=== PATIENT | male | born 1960 | race Caucasian/White ===

== ENCOUNTER 2023-03-18 07:28 | Inpatient (IN) ==
[2023-03-18] MEDS ORDERED: KETOROLAC TROMETHAMINE 15 MG/ML VIAL IV STA (07:40)
[2023-03-18] MEDS ORDERED: ONDANSETRON INJ 2 MG/ML 2 ML VIAL IV STA (07:40)
[2023-03-18] MEDS ORDERED: SODIUM CHLORIDE 0.9% 1000ML 1,000 ML IV STA (07:40)
--- NOTE | 2023-03-18 07:48 | Emergency Department Note ---
Impression & Plan Acute appendicitis ED Provider Note INFORMANT: Patient ED PROVIDER(S): Lucius Shultz DO CHIEF COMPLAINT: Right lower quadrant abdominal pain PLAN: Disposition: Admission Outpatient prescription management: none Discussion with: Surgery MEDICAL DECISION MAKING: This is a 62-year-old male who presents to the ED with a chief complaint of right lower abdominal pain. He states that it feels like a spasm. Reports associated nausea and vomiting. The patient states that his symptoms started suddenly around 130 this morning when he was urinating. The patient has some tenderness in the right lower abdomen. No CVA tenderness. Lungs clear. Heart is regular rate and rhythm. He does report history of inguinal hernia with surgery in the past. The patient's blood pressure was elevated. He did take some nausea medication prior to arrival. The patient has a mild leukocytosis of 12.55. Chemistry panel showed no electrolyte abnormality. Kidney function was normal. Lipase was negative for pancreatitis. CT scan shows acute appendicitis. I spoke with the general surgery service. They will see the patient for further inpatient evaluation and care. The patient was treated with IV Toradol, IV Zofran and IV fluids Triage Nursing notes reviewed. Vital Signs: reviewed Prior /Outside records reviewed: none Differential diagnosis: Inguinal hernia, kidney stone, appendicitis, cellulitis, bowel perforation, musculoskeletal, vascular catastrophe, other. Diagnostics, as interpreted by me: 12 lead ECG: None Cardiac Monitoring ordered: none Medical decision rules: none Imaging studies: CT scan of the abdomen pelvis: Acute appendicitis Procedures: none. Critical care: none. HPI: See MDM above. PAST MEDICAL HISTORY: See Below PAST SURGICAL HISTORY: See Below SOCIAL HISTORY: See Below HOME MEDICATIONS:See Below ALLERGIES: See Below VITALS: See Below PHYSICAL EXAMINATION: See MDM for positive findings otherwise unremarkable. CONSTITUTIONAL/VITAL SIGNS: Reviewed GENERAL:done as appropriate INTEGUMENTARY: done as appropriate HEAD: done as appropriate EYES: done as appropriate RESPIRATORY: done as appropriate CARDIOVASCULAR:done as appropriate GI/ABDOMEN:done as appropriate EXTREMITIES: done as appropriate NEUROLOGICAL: done as appropriate PSYCHIATRIC:done as appropriate MUSCULOSKELETAL:done as appropriate TRIAGE NURSING DOCUMENTATION REVIEWED. Past Med/Surg History Medical History Anxiety CAD (coronary artery disease) Depression Eczema Enlarged prostate GERD (gastroesophageal reflux disease) High cholesterol History of alcohol use disorder Hx of cocaine abuse Hypertension OCD (obsessive compulsive disorder) Right inguinal hernia Social anxiety disorder Surgical History History of cataract surgery RT/LEFT Hx of hernia repair Hx of inguinal hernia surgery (10/19/19) Laparoscopic Right Recurrent Inguinal Hernia Repair with Mesh, Left Laparoscopic Inguinal Hernia Repair with Mesh; Open Umbilical Hernia Repair; Enterolysis Dr. Jason 10-19-19 Hx of resection of liver PARTIAL Hx of vascular surgery LEFT Social History Smoking Status: Never smoker Preferred Language: Arabic Current Living Situation: Other Current Living Situation Comment: [facility] Feels Safe at Home: Yes Allergies Allergies Allergy/AdvReac Type Severity Reaction Status Date / Time Qkxkpew-ESJ-WdD Reductase AdvReac LEG CRAMPS Verified 11/03/19 10:18 Inhibitor [Kekfvld-Ahh-Tjs Reductase Inhibitor] Home Meds Home Medications Medication Instructions Recorded Confirmed aspirin 81 mg tablet,delayed 81 mg PO DAILY 02/23/19 11/03/19 release fluoxetine 20 mg capsule 60 mg PO DAILY 02/23/19 11/03/19 hydrochlorothiazide 12.5 mg capsule 12.5 mg PO DAILY 02/23/19 11/03/19 lamotrigine 25 mg tablet,extended 50 mg PO DAILY 02/23/19 11/03/19 release 24 hr lisinopril 10 mg tablet 10 mg PO DAILY 02/23/19 11/03/19 omeprazole 20 mg tablet,delayed 20 mg PO DAILY 02/23/19 11/03/19 release tamsulosin 0.4 mg capsule 0.4 mg PO DAILY 02/23/19 11/03/19 Results & Data (ED) Vital Signs Vital Signs - 24 hr 03/18/23 07:32 03/18/23 07:56 03/18/23 07:57 Temperature 36.5 C Temperature Source Temporal Artery Scan Pulse Rate 57 L Pulse Rate [Apical] 47 L Pulse Rhythm Regular Pulse Strength Normal Respiratory Rate 18 18 Respiratory Effort / Characteristics Non-Labored Spontaneous Respiratory Depth Normal Respiratory Pattern Regular Blood Pressure 187/91 H Blood Pressure Mean 123 Blood Pressure Position Sitting Pulse Oximetry 99 99 98 Oxygen Delivery Method Room Air Room Air Room Air Sepsis Recent Fever Within 48 Hours No Sepsis New/Unexplained Change in Mental Status No Sepsis Action Taken by Nursing No Action Required Laboratory Data 03/18/23 08:00 03/18/23 08:00 Lab Results 03/18/23 03/18/23 Range/Units 08:00 08:00 WBC 12.55 H (4.8-10.8) K/ul RBC 5.29 (4.70-6.10) M/uL Hgb 16.3 (14.0-18.0) g/dl Hct 45.7 (42.0-52.0) % MCV 86.4 (80.0-100.0) fL MCH 30.8 (25.0-34.0) pg MCHC 35.7 (32.0-36.0) g/dL RDW Std Deviation 39.1 (36.4-46.3) fL RDW Coeff of Lissa 12.4 (11.5-14.5) % Plt Count 401 H (130-400) K/uL MPV 9.4 (9.4-12.4) fL Immature Gran % (Auto) 0.3 % Neut % (Auto) 88.3 % Lymph % (Auto) 4.5 % [place] % (Auto) 6.2 % Eos % (Auto) 0.2 % Baso % (Auto) 0.5 % Neut # (Auto) 11.08 H (1.40-6.50) K/uL Lymph # (Auto) 0.56 L (1.2-3.4) K/uL [place] # (Auto) 0.78 H (0.11-0.59) K/uL Eos # (Auto) 0.03 (0-0.50) K/uL Baso # (Auto) 0.06 (0-0.2) K/uL Immature Gran # (Auto) 0.04 (0.01-0.20) K/uL Sodium 139 (136-145) mmol/L Potassium 3.3 L (3.5-5.1) mmol/L Chloride 102 (98-107) mmol/L Carbon Dioxide 24 (21-32) mmol/L Anion Gap 13 H (3-11) BUN 13 (6-23) mg/dl Creatinine 1.00 (0.6-1.4) mg/dl Est Cr Clr Drug Dosing 80.1 ml/min Est GFR ( Amer) 93.7 ml/min Est GFR (Non-Af Amer) 80.9 ml/min BUN/Creatinine Ratio 13.0 (10-20) Glucose 127 H (70-99(Fasting)) mg/dl Calcium 10.4 H (8.6-10.3) mg/dl Total Bilirubin 0.9 (0.2-1.0) mg/dl AST 23 (13-39) U/L ALT 30 (7-52) U/L Alkaline Phosphatase 62 (34-104) U/L Total Protein 7.3 (6.0-8.3) gm/dl Albumin 5.1 H (3.4-5.0) gm/dl Globulin 2.2 L (2.5-4.0) gm/dl Albumin/Globulin Ratio 2.3 H (0.9-2) Lipase 16 (11-82) U/L Administered Medications Discontinued Medications Sodium Chloride (Nss 1000ml) 1,000 mls @ 999 mls/hr IV .Q1H1M STA Stop: 03/18/23 08:40 Last Admin: 03/18/23 07:55 Dose: 999 mls/hr Documented By: KV Ketorolac Tromethamine (Ketorolac Tromethamine 15 Mg/Ml Vial) 30 mg IV NOW STA Stop: 03/18/23 07:41 Last Admin: 03/18/23 07:55 Dose: 30 mg Documented By: KV Ondansetron HCl (Ondansetron Inj 2 Mg/Ml 2 Ml Vial) 4 mg IV NOW STA Stop: 03/18/23 07:41 Last Admin: 03/18/23 07:55 Dose: 4 mg Documented By: KV Imaging Data Radiologist's Impression: Abdomen/Pelvis CT 03/18/23 07:40 CT OF THE ABDOMEN AND PELVIS WITHOUT CONTRAST CLINICAL HISTORY: Sudden onset right lower quadrant pain, nausea and vomiting. COMPARISON STUDY: No previous studies for comparison. TECHNIQUE: Axial images of the abdomen and pelvis were obtained without IV contrast. Images were reviewed in the axial, sagittal, and coronal planes. Automated exposure control was utilized for the study. A dose lowering t echnique was utilized adhering to the principles of ALARA. FINDINGS: Lung bases are unremarkable. There is mild elevation of the right hemidiaphragm. No pneumatosis, free air or portal venous gas is present. Evaluation of the solid abdominal viscera is suboptimal on this unenhanced exam. Liver, spleen, adrenal glands, kidneys and pancreas are normal. Is no biliary or pancreatic ductal dilatation. There is no hydronephrosis. There is no evidence for a bowel obstruction. Multiple appendicoliths within the appendix are noted. The appendix is dilated and fluid-filled, measuring 1.3 cm in caliber. Mild periappendiceal stranding and a small amount of fluid is noted. There is no abscess. Caliber and wall thickness of small and large bowel are within normal limits on unenhanced exam. There is no lymphadenopathy. There are no acute fractures. Bilateral inguinal hernia repairs are present. A loop of small bowel extends into an umbilical hernia. IMPRESSION: Findings consistent with acute appendicitis. No free air or abscess. ACT 112: Negative or not required by law. Electronically signed by: Isaac Gonzalez M.D. 03/18/2023 8:50 AM Discharge Plan Visit Data Chief Complaint: Abdominal Pain Stated Complaint: ABD PAIN ED Provider: Lucius Shultz Discharge Problem: Acute appendicitis Patient Disposition: Being Evaluated by Surgeon Forms Stand Al[facility] Prescriptions Prescriptions: No Action aspirin 81 mg Tablet,Delayed Release (Dr/Ec) 81 mg PO DAILY tamsulosin 0.4 mg Capsule 0.4 mg PO DAILY lisinopril 10 mg Tablet 10 mg PO DAILY hydrochlorothiazide 12.5 mg Capsule 12.5 mg PO DAILY fluoxetine 20 mg Capsule 60 mg PO DAILY omeprazole 20 mg Tablet,Delayed Release (Dr/Ec) 20 mg PO DAILY lamotrigine 25 mg Tablet Extended Release 24hr 50 mg PO DAILY Referrals Referrals: Lucius Shaffer [Primary Care Provider] -
[2023-03-18 08:27] LABS: Basophils # (auto) 0.06 K/uL (0-0.2); Basophils % (auto) 0.5 %; Eosinophils # (auto) 0.03 K/uL (0-0.50); Eosinophils % (auto) 0.2 %; Hematocrit (blood only) 45.7 % (42.0-52.0); Hemoglobin 16.3 g/dl (14.0-18.0); Immature Granulocytes # (auto) 0.04 K/uL (0.01-0.20); Immature Granulocytes % (auto) 0.3 %; Lymphocytes # (auto) 0.56 K/uL (1.2-3.4); Lymphocytes % (auto) 4.5 %; Mean Corpuscular Hemoglobin 30.8 pg (25.0-34.0); Mean Corpuscular Hgb Conc 35.7 g/dL (32.0-36.0); Mean Corpuscular Volume 86.4 fL (80.0-100.0); Mean Platelet Volume 9.4 fL (9.4-12.4); Monocytes # (auto) 0.78 K/uL (0.11-0.59); Monocytes % (auto) 6.2 %; Neutrophils # (auto) 11.08 K/uL (1.40-6.50); Neutrophils % (auto) 88.3 %; Platelet Count 401 K/uL (130-400); RDW Coefficient of Variation 12.4 % (11.5-14.5); RDW Standard Deviation 39.1 fL (36.4-46.3); Red Blood Count 5.29 M/uL (4.70-6.10); White Blood Count 12.55 K/ul (4.8-10.8)
[2023-03-18 08:40] LABS: Albumin Globulin Ratio 2.3 (0.9-2); Albumin Level 5.1 gm/dl (3.4-5.0); Bilirubin,Total 0.9 mg/dl (0.2-1.0); Calcium 10.4 mg/dl (8.6-10.3); Creatinine Clr Calc Pharmacy 80.1 ml/min; Est GFR (African American) 93.7 ml/min; Est GFR (Non-African American) 80.9 ml/min; Globulin 2.2 gm/dl (2.5-4.0); Potassium 3.3 mmol/L (3.5-5.1); Total Protein 7.3 gm/dl (6.0-8.3)
--- NOTE | 2023-03-18 08:52 | CT Scan Report ---
CT OF THE ABDOMEN AND PELVIS WITHOUT CONTRAST CLINICAL HISTORY: Sudden onset right lower quadrant pain, nausea and vomiting. COMPARISON STUDY: No previous studies for comparison. TECHNIQUE: Axial images of the abdomen and pelvis were obtained without IV contrast. Images were revi ewed in the axial, sagittal, and coronal planes. Automated exposure control was utilized for the belinda dy. A dose lowering technique was utilized adhering to the principles of ALARA. FINDINGS: Lung bases are unremarkable. There is mild elevation of the right hemidiaphragm. No pneumat osis, free air or portal venous gas is present. Evaluation of the solid abdominal viscera is suboptim al on this unenhanced exam. Liver, spleen, adrenal glands, kidneys and pancreas are normal. Is no ary iary or pancreatic ductal dilatation. There is no hydronephrosis. There is no evidence for a bowel ob struction. Multiple appendicoliths within the appendix are noted. The appendix is dilated and fluid-f illed, measuring 1.3 cm in caliber. Mild periappendiceal stranding and a small amount of fluid is not ed. There is no abscess. Caliber and wall thickness of small and large bowel are within normal limits on unenhanced exam. There is no lymphadenopathy. There are no acute fractures. Bilateral inguinal he rnia repairs are present. A loop of small bowel extends into an umbilical hernia. IMPRESSION: Findings consistent with acute appendicitis. No free air or abscess. ACT 112: Negative or not required by law. Electronically signed by: Isaac Gonzalez M.D. 03/18/2023 8:50 AM
--- NOTE | 2023-03-18 09:54 | History & Physical Report ---
Date of Service March 18, 2023 Assessment & Plan (1) Acute appendicitis: Plan 62 year-old male prisoner presented to ED with complaint of sudden onset of right lower abdominal pain that started at 0100 this morning. Associated chills and vomiting x 2. Decreased appetite. Leukocytosis of 12K and ct scan with acute appendicitis with appendicoliths and no signs of perforation or abscess. Plan: Discussed imaging findings with patient and examination is consistent with acute appendicitis. Discussed laparoscopic appendectomy, associated risks, and expected recovery time. Will schedule for OR time at earliest convenience. NPO COVID preop testing will give IV cefoxitin preop Dr. Olmos has seen patient in emergency room, examined patient, discussed procedure and obtained consent. I reviewed patient's H/P, labs and CT scan finding with patient. IMP: acute appendicitis, with appendicolith. Plan: I agreed with above note. I recommend to do laparoscopic appendectomy, possible open. Discussed with patient about benefits, risks and alternatives of the surgery, the risks - infection, bleeding, abscess, injury other organs, bowel obstruction, incisional hernia. patient understood, he agreed with surgery, he signed informed consent, I answered all questions, pre-op antib iotic. History of Present Illness Chief Complaint: right lower abdominal pain Primary Care Provider: Lucius Shaffer Irvin is a 62 year-old male who [facility] due to sudden onset of right lower abdominal pain after urinating. Had associated vomiting x 2. Decreased appetite in last day. No fevers but chills. Never had pain like this before. History of liver resection when he was teenager due to accident and required chest tube. History of right open inguinal hernia repair and then laparoscopic bilateral hernia repair with mesh and primary umbilical hernia repair without mesh by Dr. Jason in 2019 . States he thought that the pain was related to hernia. Has recurrent hernia and bulge in right groin but this is reducible. Takes baby aspirin daily no other blood thinning agents. ER work-up included labs which showed elevated at wbc at 12.55K. CT scan of abd/pelv with IV contrast showing dialted appendix with stranding and multiple appendicoliths consistent with acute appendicitis. No evidence of perforation or abscess. Has umbilical hernia containing small bowel but no obstruction. Allergies Allergy/AdvReac Type Severity Reaction Status Date / Time Fzlpaoa-RQJ-XqN Reductase AdvReac LEG CRAMPS Verified 11/03/19 10:18 Inhibitor [Iincbpy-Alr-Ipp Reductase Inhibitor] Home Medications Medication Instructions Recorded Confirmed Type aspirin 81 mg tablet,delayed 81 mg PO DAILY 02/23/19 11/03/19 History release fluoxetine 20 mg capsule 60 mg PO DAILY 02/23/19 11/03/19 History hydrochlorothiazide 12.5 mg capsule 12.5 mg PO DAILY 02/23/19 11/03/19 History lamotrigine 25 mg tablet,extended 50 mg PO DAILY 02/23/19 11/03/19 History release 24 hr lisinopril 10 mg tablet 10 mg PO DAILY 02/23/19 11/03/19 History omeprazole 20 mg tablet,delayed 20 mg PO DAILY 02/23/19 11/03/19 History release tamsulosin 0.4 mg capsule 0.4 mg PO DAILY 02/23/19 11/03/19 History Past Med/Surg History Medical History Anxiety CAD (coronary artery disease) Depression Eczema Enlarged prostate GERD (gastroesophageal reflux disease) High cholesterol History of alcohol use disorder Hx of cocaine abuse Hypertension OCD (obsessive compulsive disorder) Right inguinal hernia Social anxiety disorder Surgical History History of cataract surgery RT/LEFT Hx of hernia repair Hx of inguinal hernia surgery (10/19/19) Laparoscopic Right Recurrent Inguinal Hernia Repair with Mesh, Left Laparoscopic Inguinal Hernia Repair with Mesh; Open Umbilical Hernia Repair; Enterolysis Dr. Jason 10-19-19 Hx of resection of liver PARTIAL Hx of vascular surgery LEFT Social History Smoking Status: Never smoker Preferred Language: Divehi Current Living Situation: Other Current Living Situation Comment: [facility] Feels Safe at Home: Yes Review of Systems Review of Systems: All systems reviewed & are unremarkable except as noted in HPI & below Physical Exam Constitutional: WD/WN, vitals as above cooperative and comfortable; no acute distress and not ill appearing Respiratory: normal respiratory effort, lungs clear to auscultation Cardiovascular: RRR, no murmur, no edema Gastrointestinal (Abdomen): Inspection/Auscultation: abdomen normal to inspection, normal bowel sounds and + abdominal surgical scar (right paramidline scar, laparoscopic scars); abdomen not distended Percussion/Palpation: + abdomen tender (RLQ with positive mcburneys point), + guarding (voluntary in RLQ), abdomen soft and + hernia (umbilical hernia reducible, RIH with pain on palpation); abdomen not rigid and abdomen not firm Skin: no rashes, warm and dry Psychiatric: A+Ox3, euthymic affect Results & Data Results & Data Vital Signs (Past 12 Hours) Vital Signs Temp Pulse Pulse Resp BP Pulse Ox O2 Del Method 03/18/23 07:57 98 Room Air 03/18/23 07:56 47 L 18 99 Room Air 03/18/23 07:32 36.5 C 57 L 18 187/91 H 99 Room Air Laboratory Results 03/18/23 03/18/23 Range/Units 08:00 08:00 WBC 12.55 H (4.8-10.8) K/ul RBC 5.29 (4.70-6.10) M/uL Hgb 16.3 (14.0-18.0) g/dl Hct 45.7 (42.0-52.0) % MCV 86.4 (80.0-100.0) fL MCH 30.8 (25.0-34.0) pg MCHC 35.7 (32.0-36.0) g/dL RDW Std Deviation 39.1 (36.4-46.3) fL RDW Coeff of Lissa 12.4 (11.5-14.5) % Plt Count 401 H (130-400) K/uL MPV 9.4 (9.4-12.4) fL Immature Gran % (Auto) 0.3 % Neut % (Auto) 88.3 % Lymph % (Auto) 4.5 % [place] % (Auto) 6.2 % Eos % (Auto) 0.2 % Baso % (Auto) 0.5 % Neut # (Auto) 11.08 H (1.40-6.50) K/uL Lymph # (Auto) 0.56 L (1.2-3.4) K/uL [place] # (Auto) 0.78 H (0.11-0.59) K/uL Eos # (Auto) 0.03 (0-0.50) K/uL Baso # (Auto) 0.06 (0-0.2) K/uL Immature Gran # (Auto) 0.04 (0.01-0.20) K/uL Sodium 139 (136-145) mmol/L Potassium 3.3 L (3.5-5.1) mmol/L Chloride 102 (98-107) mmol/L Carbon Dioxide 24 (21-32) mmol/L Anion Gap 13 H (3-11) BUN 13 (6-23) mg/dl Creatinine 1.00 (0.6-1.4) mg/dl Est Cr Clr Drug Dosing 80.1 ml/min Est GFR ( Amer) 93.7 ml/min Est GFR (Non-Af Amer) 80.9 ml/min BUN/Creatinine Ratio 13.0 (10-20) Glucose 127 H (70-99(Fasting)) mg/dl Calcium 10.4 H (8.6-10.3) mg/dl Total Bilirubin 0.9 (0.2-1.0) mg/dl AST 23 (13-39) U/L ALT 30 (7-52) U/L Alkaline Phosphatase 62 (34-104) U/L Total Protein 7.3 (6.0-8.3) gm/dl Albumin 5.1 H (3.4-5.0) gm/dl Globulin 2.2 L (2.5-4.0) gm/dl Albumin/Globulin Ratio 2.3 H (0.9-2) Lipase 16 (11-82) U/L Diagnostic Findings CT OF THE ABDOMEN AND PELVIS WITHOUT CONTRAST CLINICAL HISTORY: Sudden onset right lower quadrant pain, nausea and vomiting. COMPARISON STUDY: No previous studies for comparison. TECHNIQUE: Axial images of the abdomen and pelvis were obtained without IV contrast. Images were reviewed in the axial, sagittal, and coronal planes. Automated exposure control was utilized for the study. A dose lowering technique was utilized adhering to the principles of ALARA. FINDINGS: Lung bases are unremarkable. There is mild elevation of the right hemidiaphragm. No pneumatosis, free air or portal venous gas is present. Evaluation of the solid abdominal viscera is suboptimal on this unenhanced exam. Liver, spleen, adrenal glands, kidneys and pancreas are normal. Is no biliary or pancreatic ductal dilatation. There is no hydronephrosis. There is no evidence for a bowel obstruction. Multiple appendicoliths within the appendix are noted. The appendix is dilated and fluid-filled, measuring 1.3 cm in caliber. Mild periappendiceal stranding and a small amount of fluid is noted. There is no abscess. Caliber and wall thickness of small and large bowel are within normal limits on unenhanced exam. There is no lymphadenopathy. There are no acute fractures. Bilateral inguinal hernia repairs are present. A loop of small bowel extends into an umbilical hernia. IMPRESSION: Findings consistent with acute appendicitis. No free air or abscess. Code Status & VTE Plan VTE Prophylaxis Plan VTE Prophylaxis will be ordered: Yes
[2023-03-18] MEDS ORDERED: cefOXitin 2,000 MG/60 ML BAG IV STA (10:48)
--- NOTE | 2023-03-18 11:04 | Anesthesiology Consultation ---
Date of Service March 18, 2023 Assessment & Plan (1) Encounter for pre-operative examination: Chart Review Chart Review: Acceptable Risk for Surgery and Patient NOT seen in Pre Admission Testing Consults Requested none History Surgery Operation Date: 03/18/23 12:30 Proposed Procedures p Laparoscopic Appendectomy - Galina Olmos MD Height/Weight Height: 5 ft 10 in Weight: 79 kg Allergies Allergy/AdvReac Type Severity Reaction Status Date / Time Hlnwpae-RST-UuG Reductase AdvReac LEG CRAMPS Verified 11/03/19 10:18 Inhibitor [Kmevqmo-Bpf-Nhv Reductase Inhibitor] Medications Home Medications Medication Instructions Recorded Confirmed Last Taken aspirin 81 mg tablet,delayed 81 mg PO DAILY 02/23/19 11/03/19 10/18/19 08:00 release fluoxetine 20 mg capsule 60 mg PO DAILY 02/23/19 11/03/19 10/18/19 08:00 hydrochlorothiazide 12.5 mg capsule 12.5 mg PO DAILY 02/23/19 11/03/19 10/18/19 08:00 lamotrigine 25 mg tablet,extended 50 mg PO DAILY 02/23/19 11/03/19 10/18/19 08:00 release 24 hr lisinopril 10 mg tablet 10 mg PO DAILY 02/23/19 11/03/19 10/18/19 08:00 omeprazole 20 mg tablet,delayed 20 mg PO DAILY 02/23/19 11/03/19 10/18/19 08:00 release tamsulosin 0.4 mg capsule 0.4 mg PO DAILY 02/23/19 11/03/19 10/18/19 08:00 NPO Date Last Intake of Fluids: 03/17/23 Time Last Intake of Fluids: 20:00 Date Last Intake of Solids: 03/17/23 Time Last Intake of Solids: 20:00 Past Medical History Medical History Anxiety CAD (coronary artery disease) Depression Eczema Enlarged prostate GERD (gastroesophageal reflux disease) High cholesterol History of alcohol use disorder Hx of cocaine abuse Hypertension OCD (obsessive compulsive disorder) Right inguinal hernia Social anxiety disorder Past Surgical History Surgical History History of cataract surgery RT/LEFT Hx of hernia repair Hx of inguinal hernia surgery (10/19/19) Laparoscopic Right Recurrent Inguinal Hernia Repair with Mesh, Left Laparoscopic Inguinal Hernia Repair with Mesh; Open Umbilical Hernia Repair; Enterolysis Dr. Jason 10-19-19 Hx of resection of liver PARTIAL Hx of vascular surgery LEFT Social History Smoking Status: Never smoker Physical Exam Vital Signs Last Vital Signs Temp 98.2 F 03/18/23 10:58 Pulse 56 L 03/18/23 10:58 Resp 18 03/18/23 10:58 BP 137/66 03/18/23 10:58 Pulse Ox 96 03/18/23 10:58 O2 Del Method Room Air 03/18/23 10:58 Testing Laboratory Results 03/18/23 08:00 03/18/23 08:00
--- NOTE | 2023-03-18 11:08 | History & Physical Bridge Note ---
Date of Service March 18, 2023 History & Physical Bridge Note I have examined the patient, reviewed the History & Physical and in the interval since the performance of the History & Physical I have noted the following changes of clinical significance: no changes noted
[2023-03-18] MEDS ORDERED: ATROPINE SULFATE 0.1 MG/ML 10ML SYR IV PRN (11:10)
[2023-03-18] MEDS ORDERED: fentaNYL citrate PF 100 MCG/2 ML VIAL IV PRN (11:10)
[2023-03-18] MEDS ORDERED: ePHEDrine sulfate 50 MG/ML AMP IV PRN (11:10)
[2023-03-18] MEDS ORDERED: ONDANSETRON INJ 2 MG/ML 2 ML VIAL IV PRN ×2 (11:10→14:44)
[2023-03-18] MEDS ORDERED: fentaNYL citrate PF 100 MCG/2 ML VIAL ONE ×2 (11:18→12:08)
[2023-03-18] MEDS ORDERED: MIDAZOLAM HCL 1 MG/ML 2ML VIAL ONE (11:18)
[2023-03-18] MEDS ORDERED: BACITRACIN OINT 15 GM TUBE ONE (11:20)
[2023-03-18] MEDS ORDERED: BUPIVACAINE/EPINEPHRINE 0.5% MPF 1:200,000 30 ML VIAL ONE (11:21)
[2023-03-18] MEDS ORDERED: LIDOCAINE 1% LOCAL 20 ML VIAL ONE (11:21)
[2023-03-18] MEDS ORDERED: LIDOCAINE 2% 2 ML VIAL/AMP(20MG/ML) INFIL ONE (12:02)
[2023-03-18] MEDS ORDERED: DEXAMETHASONE SOD INJ 4 MG/ML VIAL ONE (12:02)
[2023-03-18] MEDS ORDERED: ROCURONIUM BROMIDE 10 MG/ML 5 ML VIAL IV ONE ×2 (12:02→12:46)
[2023-03-18] MEDS ORDERED: PROPOFOL IV EMULSION 10 MG/ML 20 ML VIAL IV ONE ×2 (12:02→12:09)
[2023-03-18] MEDS ORDERED: ONDANSETRON INJ 2 MG/ML 2 ML VIAL ONE (12:02)
[2023-03-18] MEDS ORDERED: ePHEDrine sulfate 50 MG/ML SYR ONE (12:03)
[2023-03-18] MEDS ORDERED: SUGAMMADEX SODIUM 200 MG/2 ML VIAL IV ONE (12:37)
[2023-03-18] MEDS ORDERED: VANCOMYCIN HCL 1000MG/20ML VIAL ONE (12:43)
--- NOTE | 2023-03-18 13:01 | Post Operative Brief Note ---
Immediate Post Op Note v1 Date of Surgery March 18, 2023 Pre & Post Diagnosis Operation Date: 03/18/23 14:05 PRE-OP DIAGNOSIS: ACUTE APPENDICITIS Post-OP DIAGNOSIS: ACUTE APPENDICITIS I identified the patient and participated in the time-out.: Yes Procedure Operation Date: 03/18/23 14:05 laparoscopic appendectomy Surgeon Galina Olmos MD [employer] Karen CHRIS Estimated Blood Loss 10 Findings Consistent with Post-Op Diagnosis acute appendicitis Fluids 1200 ml Specimens appendix Anesthesia Type General Complications none Disposition Accompanied Patient To Recovery: Yes
--- NOTE | 2023-03-18 13:39 | Anesthesiology Progress Note ---
Date of Service March 18, 2023 Anesthesia Post Procedure Vital Signs Vital Signs: Temp Pulse Pulse Resp BP BP Pulse Ox 03/18/23 13:35 80 16 117/67 96 03/18/23 13:25 79 16 112/69 96 03/18/23 13:15 97.7 F 75 18 124/62 94 03/18/23 10:58 98.2 F 56 L 18 137/66 96 03/18/23 10:39 58 L 18 96 03/18/23 09:57 54 L 16 170/79 H 97 03/18/23 07:57 98 03/18/23 07:56 47 L 18 99 03/18/23 07:32 97.7 F 57 L 18 187/91 H 99 O2 Del Method O2 Flow Rate 03/18/23 13:35 Room Air 03/18/23 13:25 Room Air 03/18/23 13:15 Oxymask 7 03/18/23 10:58 Room Air 03/18/23 10:39 Room Air 03/18/23 09:57 Room Air 03/18/23 07:57 Room Air 03/18/23 07:56 Room Air 03/18/23 07:32 Room Air Pain Intensity Right Lower Abdomen: Pain Intensity: 0 Transfer of Care Handoff Completed per policy Notes Mental Status: alert / awake / arousable and participated in evaluation Patient Amnestic to Procedure: Yes Nausea / Vomiting: adequately controlled Pain: adequately controlled Airway Patency, RR, SpO2: stable & adequate BP & HR: stable & adequate Hydration State: stable & adequate Anesthetic Complications: no major complications apparent and Pt Satisfied with anesthetic care
[2023-03-18] MEDS ORDERED: HYDROmorphone INJ 0.5 MG/0.5 ML SYR IV PRN (14:44)
[2023-03-18] MEDS ORDERED: oxyCODONE/ACETAMINOPHEN 5mg/325mg TAB PO PRN (14:44)
[2023-03-18] MEDS: LACTATED RINGER'S 1,000 ML IV SCH ×2 (15:00→18:04)
[2023-03-18] MEDS: TAMSULOSIN HCL 0.4 MG CAP PO SCH (15:13)
[2023-03-18] MEDS: lisinopril 10 MG TAB PO SCH (15:28)
[2023-03-18] MEDS: hydroCHLOROthiazide 25 MG TAB PO SCH (15:29)
[2023-03-18] MEDS: PANTOprazole 40 MG TAB PO SCH (15:29)
[2023-03-18 21:46] LABS: Appearance Urine Clear (Clear); Bilirubin Urine Negative (Negative); Blood Urine Negative (Negative); Color Urine Yellow; Glucose Urine UA Negative (Negative); Ketones Urine Negative (Negative); Leukocyte Esterase Urine Negative (Negative); Nitrite Urine Negative (Negative); Protein Urine Negative (Negative); Specific Gravity Urine 1.014 (1.000-1.030); Urobilinogen Urine Negative (Negative)
--- NOTE | 2023-03-18 23:25 | Operative Report (OR) ---
PREOPERATIVE DIAGNOSIS: Acute appendicitis. POSTOPERATIVE DIAGNOSIS: Acute appendicitis. OPERATION: Laparoscopic appendectomy. SURGEON: Galina Olmos MD. BLOCK SAW OPERATOR: Karen Gage PA-C. ANESTHESIA: General. ESTIMATED BLOOD LOSS: About 10 mL. FINDINGS: Acute appendicitis. COMPLICATIONS: None. INDICATIONS FOR THE PROCEDURE: This is a 62-year-old gentleman who presented to ED with right lower quadrant pain and the patient had a CT scan diagnosis of acute appendicitis. I recommended to do laparoscopic appendectomy, possible open. I did talk to the patient about the benefit, risk, alternate procedure. I indicated the risks may include, but not limited to such as bleeding, infection, abscess, injury to other organs, bowel obstruction, incisional hernia. The patient understands. He signed informed consent and I answered all questions. DETAILS OF PROCEDURE: After we identified the patient and verified the procedure, we brought the patient to the OR, put the patient in the supine position on the OR table. The patient received SCDs on bilateral legs to prevent DVT. Also, the patient received 2 grams cefoxitin IV for prophylactic antibiotic. The patient received general anesthesia without difficulty. Also, the patient received Rush catheter insertion to drainage the urine. The abdomen was prepped and draped in routine sterile fashion. After timeout, I injected the local anesthesia just above the umbilicus. Then, I made a small incision just above umbilicus, opened fascia, opened peritoneum. Under direct vision, put a Sarah trocar in, connected to CO2 to create pneumoperitoneum, flow rate at 6 liters per minute, pressure not more than 14 mmHg. Once we got a nice pneumoperitoneum, we put a camera in, looked around the abdomen, showed the patient had adhesion small bowel to anterior abdominal wall. The patient had open repair of umbilical hernia and bilateral repair inguinal hernia laparoscopic, and also the patient had liver resection at a young age. The patient had a large right-sided abdominal wall scar. At this moment, we put another one 5 mm trocar located right side of the abdomen on the right lower quadrant area and another 5 mm trocar insertion on the right upper quadrant area. we used the grasper to mobilize the cecum and then we found the patient had acute appendicitis. Appendix is enlarged with significant inflammation. At this moment, we used the Harmonic to take down the appendiceal. After we took down the appendiceal. we also found that some free fluid at peviic area, We suctioned the fluid out and then we identified the junction between the appendix base and cecum. Then, I chose a 45 mm Endo-SEAN stapler for transection on the base of the appendix, rechecked the staple line, intact. no leak. No active bleeding. Then, we removed the appendix through the catch bag. Then, we reinserted the Sarah trocar in, connected to CO2 again. At this moment, I decided using 1 gram of vancomycin plus 1 liter of normal saline and flushed the right lower quadrant area until the flow was clear. Again, we rechecked the staple line, intact and no leak, no active bleeding. Then, we removed all trocars under direct vision. No active bleeding from the trocar site. Pneumoperitoneum was released. Then, I closed the umbilical incision fascial layer by using 0 Vicryl [id number] x2, closed subcutaneous layer by using 2-0 Vicryl interruptedly, closed skin by using 4-0 Vicryl continuous running, closed another two 5 mm trocar sites of skin only by using 4-0 Vicryl. Then, we put the dressing on. The patient tolerated the procedure well. All instrument, needle and sponge counts were correct x2 at the end of the case. The patient was transferred to recovery room in stable condition. Also, in the OR, once we finished the procedure, we removed the Rush catheter in the OR. After procedure, I did talk to the patient about the OR finding and procedure we did, the patient understands. The medical office assistant, Karen, is necessary for this procedure. Her role was to hold the camera, retraction and exposure. Job ID: [id number] [facility]
[2023-03-19] MEDS: LACTATED RINGER'S 1,000 ML IV SCH (06:20)
[2023-03-19 08:08] LABS: Albumin Globulin Ratio 2.2 (0.9-2); Albumin Level 3.7 gm/dl (3.4-5.0); Bilirubin,Total 0.8 mg/dl (0.2-1.0); Calcium 8.8 mg/dl (8.6-10.3); Creatinine Clr Calc Pharmacy 96.5 ml/min; Est GFR (African American) 110.1 ml/min; Globulin 1.7 gm/dl (2.5-4.0); Potassium 3.1 mmol/L (3.5-5.1); Total Protein 5.4 gm/dl (6.0-8.3)
[2023-03-19 08:10] LABS: Basophils # (auto) 0.02 K/uL (0-0.2); Basophils % (auto) 0.2 %; Eosinophils # (auto) 0.05 K/uL (0-0.50); Eosinophils % (auto) 0.6 %; Hematocrit (blood only) 36.3 % (42.0-52.0); Hemoglobin 12.4 g/dl (14.0-18.0); Immature Granulocytes # (auto) 0.03 K/uL (0.01-0.20); Immature Granulocytes % (auto) 0.3 %; Lymphocytes # (auto) 1.01 K/uL (1.2-3.4); Lymphocytes % (auto) 11.5 %; Mean Corpuscular Hemoglobin 30.3 pg (25.0-34.0); Mean Corpuscular Hgb Conc 34.2 g/dL (32.0-36.0); Mean Corpuscular Volume 88.8 fL (80.0-100.0); Mean Platelet Volume 9.7 fL (9.4-12.4); Monocytes # (auto) 1.04 K/uL (0.11-0.59); Monocytes % (auto) 11.8 %; Neutrophils # (auto) 6.65 K/uL (1.40-6.50); Neutrophils % (auto) 75.6 %; Platelet Count 289 K/uL (130-400); RDW Coefficient of Variation 12.6 % (11.5-14.5); RDW Standard Deviation 41.1 fL (36.4-46.3); Red Blood Count 4.09 M/uL (4.70-6.10)
[2023-03-19] MEDS: hydroCHLOROthiazide 25 MG TAB PO SCH (08:59)
[2023-03-19] MEDS ORDERED: FLUoxetine HCL 20 MG CAP PO SCH (09:00)
[2023-03-19] MEDS: TAMSULOSIN HCL 0.4 MG CAP PO SCH (09:00)
[2023-03-19] MEDS: PANTOprazole 40 MG TAB PO SCH (09:00)
[2023-03-19] MEDS ORDERED: ASPIRIN 81 MG ECTAB PO SCH (09:00)
[2023-03-19] MEDS: lisinopril 10 MG TAB PO SCH (09:01)
--- NOTE | 2023-03-19 10:18 | Discharge Summary ---
Date of Service March 19, 2023 Admission HPI Per Admitting Provider Irvin is a 62 year-old male who presented to emergency department from [facility] due to sudden onset of right lower abdominal pain after urinating. Had associated vomiting x 2. Decreased appetite in last day. No fevers but chills. Never had pain like this before. History of liver resection when he was teenager due to accident and required chest tube. History of right open inguinal hernia repair and then laparoscopic bilateral hernia repair with mesh and primary umbilical hernia repair without mesh by Dr. Jason in 2019 . States he thought that the pain was related to hernia. Has recurrent hernia and bulge in right groin but this is reducible. Takes baby aspirin daily no other blood thinning agents. ER work-up included labs which showed elevated at wbc at 12.55K. CT scan of abd/pelv with IV contrast showing dialted appendix with stranding and multiple appendicoliths consistent with acute appendicitis. No evidence of perforation or abscess. Has umbilical hernia containing small bowel but no obstruction. Principal Diagnosis Acute appendicitis Discharge Exam Constitutional WD/WN, vitals as above cooperative and comfortable; no acute distress and not ill appearing Respiratory normal respiratory effort; no respiratory distress Gastrointestinal (Abdomen) Inspection/Auscultation: abdomen normal to inspection and + abdominal surgical incision (covered with dry dressings) Percussion/Palpation: + abdomen tender (Right mid to low abdomen and at incision sites appropriate postop) and abdomen soft; no guarding and abdomen not rigid Skin no rashes, warm and dry Psychiatric A+Ox3, euthymic affect Discharge Data Allergies Allergy/AdvReac Type Severity Reaction Status Date / Time lisinopril Allergy Unknown Unknown Unverified 03/18/23 19:52 Plguvcx-FOP-FmB Reductase AdvReac LEG CRAMPS Verified 03/18/23 19:52 Inhibitor [Lyrvejq-Vea-Faq Reductase Inhibitor] Procedures Performed Operation Date: 03/18/23 12:30 Actual Procedures p Laparoscopic Appendectomy(Not Applicable) - Galina Olmos MD Ordered Studies 03/18/23 07:40 CT abd pelvis wo con Stat Hospital Course (1) Acute appendicitis: Patient taken to operating room for laparoscopic appendectomy from emergency department by Dr. Olmos. Patient found to have acute appendicitis without perforation or abscess. Patient tolerated procedure without difficulty and transferred to recovery then to medical/surgical floor for postop care. Diet advanced to clear liquids, pain management as needed, antiemetics as needed. POD # 1 afebrile, vss, postop pain controlled, no n,v, no chest pain or shortness of breath. Diet was advanced to regular diet. patient [facility] 1 in stable condition. Total Time Total Time Spent Total Time Spent (In Minutes): 30 Total Time Includes: Examination of the Patient, Discharge Planning, Medication Reconciliation and Communication With Other Providers Discharge Plan Discharge Items Patient Disposition: [facility] Reason For Visit: VOMITING, LOWER ABDOMINAL PAIN Discharge Diagnosis: Acute appendicitis with appendicoliths Activity: Per Instructions section Non-emergency contact: Primary Care Provider and Surgeon Call non-emergency contact if: you have any medication questions, your pain is not controlled, your pain is worsening, you have a fever, your temperature is above 101, your wound has increased redness, your wound has increased drainage and your wound pain has increased Follow-up/Referrals: Lucius Shaffer [Primary Care Provider] - Galina Olmos MD [Physician] - Diet: Regular Addtl Attending Provider Instructions: Post-Surgical ~Discharge Instructions Activity Recommendations: - lifting limitation: (20 pounds for 3-4 weeks), - exercise/sex/sports limit: (nonstrenuous for 2 weeks), - driving or machine use limit: (none for 1 week), - Shower/bathe limit: (may shower beginning Wednesday) Diet: - Resume previous diet SPECIAL CARE INSTRUCTIONS: - May shower on Wednesday, sponge bath and wash hair in meantime. On Wednesday, remove outer dressings and shower. Let water run over area and pat dry. - Leave steri strips on for one week and then remove. - Call the surgeon's office with any questions or concerns - - (ex. temperature higher than 101 degrees F, excessive bleeding or pain). MEDICATIONS: - Resume previous medications unless instructed otherwise by your surgeon. May alternate extra strenghth Tylenol and Ibuprofen as needed for pain - Tylenol 650 mg every 6 hours as needed - Ibuprofen 600 mg every 6 hours as needed (take with food) - Recommend daily to twice a day stool softener (Colace) given history of constipation and to avoid straining. Drink plenty of water daily. - Recommend antibiotics (Augmentin vs Cipro/Flagyl ) for 7 days FOLLOW UP VISIT: - If not already scheduled, please call the office to schedule a two week follow-up appointment. Office number Pending Studies at Discharge: Yes (pathology) Stand-Alone Forms: My [facility] Skilled Items Patient informed of condition?: Yes Discharge Level of Care: Other Communicable Disease: No Discharge Prognosis: Stable Lines: None Urinary Catheter: No Medications and DC Order Prescriptions: Continued aspirin 81 mg Tablet,Delayed Release (Dr/Ec) 81 mg PO DAILY tamsulosin 0.4 mg Capsule 0.4 mg PO DAILY fluoxetine 20 mg Capsule 80 mg PO DAILY chlorthalidone 25 mg Tablet 25 mg PO DAILY buspirone 10 mg Tablet 20 mg PO DAILY lamotrigine [Lamictal] 100 mg Tablet 200 mg PO DAILY ezetimibe [Zetia] 10 mg Tablet 10 mg PO DAILY omega-3 fatty acids-vitamin E 1,000 mg Capsule 1 cap PO BID amlodipine [Norvasc] 10 mg Tablet 10 mg PO DAILY Discharge Orders: Discharge Order (Routine); Ordered 03/19/23 Ordered By: Karen Gage Admission Data Admit Date/Time: 03/18/23 13:07 Attending Provider: Galina Olmos Admit Provider: Galina Olmos Primary Care Provider: Lucius Shaffer
== END 2023-03-19 16:34 | DRG 343 ==
LOC: ED 07:28 → OR 10:39 → 3N 10:39

== ENCOUNTER 2024-04-22 16:44 | Inpatient (IN) ==
[2024-04-22] MEDS: RAPID SEQUENCE INDUCTION BAG ONE (16:44)
[2024-04-22] MEDS: propofoL 1,000 MG/100 ML VIAL IV SCH (17:00)
[2024-04-22] MEDS: PROPOFOL BOLUS FROM BAG IV PRN (17:07)
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
[2024-04-22 17:18] LABS: Base Excess VBG -2.1 mEq/L; HCO3 VBG 25 mmol/L; Oxygen Saturation VBG 90.5 %; PCO2 VBG 49 mmHg (38-50); PO2 VBG 66 mmHg; pH VBG 7.31 (7.36-7.41)
[2024-04-22] MEDS ORDERED: MIDAZOLAM HCL 5 MG/ML 1 ML VIAL IV ONE (17:19)
[2024-04-22] MEDS ORDERED: SUCCINYLCHOLINE CHLORIDE 20 MG/ML 10 ML VIAL IV ONE (17:19)
[2024-04-22 17:31] LABS: Basophils # (auto) 0.09 K/uL (0.00-0.20); Basophils % (auto) 1.2 %; Eosinophils % (auto) 1.3 %; Hematocrit (blood only) 44.3 % (42.0-52.0); Hemoglobin 15.8 g/dl (14.0-18.0); Immature Granulocytes # (auto) 0.08 K/uL (0.01-0.20); Lymphocytes # (auto) 1.09 K/uL (1.20-3.40); Mean Corpuscular Hemoglobin 30.3 pg (25.0-34.0); Mean Corpuscular Hgb Conc 35.7 g/dL (32.0-36.0); Monocytes # (auto) 0.57 K/uL (0.11-0.59); Monocytes % (auto) 7.3 %; Neutrophils # (auto) 5.84 K/uL (1.40-6.50); Neutrophils % (auto) 75.2 %; Platelet Count 388 K/uL (130-400); RDW Coefficient of Variation 12.2 % (11.5-14.5); RDW Standard Deviation 37.2 fL (36.4-46.3); Red Blood Count 5.21 M/uL (4.70-6.10); White Blood Count 7.77 K/ul (4.8-10.8)
--- NOTE | 2024-04-22 17:36 | CT Scan Report ---
CT SCAN OF THE CERVICAL SPINE CLINICAL HISTORY: Head injury. Change in mental status COMPARISON STUDY: No priors. TECHNIQUE: CT scan of the cervical spine is performed from the skull base to the upper thoracic spine . Images are reviewed in the axial, sagittal, and coronal planes. IV contrast was not administered fo r this examination. A dose lowering technique was utilized adhering to the principles of ALARA. CT DOSE: 1159. mGy.cm FINDINGS: An endotracheal tube is noted on the overedge sewer tomogram. Skeletal structures: The skeletal structures are well mineralized. There is no evidence of fracture o r subluxation involving the cervical spine. Vertebral body height and alignment are maintained. Ther e is straightening of the cervical lordosis. Anterior osteophytes are seen throughout. The odontoid p rocess and lateral masses are intact. The atlantoaxial articulation is preserved noting mild producti ve degenerative change. The spinous processes appear intact. There is mild multilevel facet arthropat hy. Intervertebral discs: There is moderate disc space narrowing at C6-C7 and C7-T1. The remaining disc s paces appear maintained. Central canal: Posterior disc osteophyte complexes at C5-C6 and C6-C7 may contribute to acquired comp romise of the central canal. Soft tissues: The prevertebral and paraspinous soft tissues are within normal limits. There is athero sclerotic calcification of the carotid bulbs. Roland secretions are noted throughout the pharynx. Calvarium: The visualized calvarium at the skull base appears intact. Brain parenchyma: Partially visualized brain parenchyma at the skull base is within normal limits. Sinuses and mastoids: The visualized paranasal sinuses are clear. The mastoid air cells are well pneu matized. Lung apices: Clear as visualized. IMPRESSION: There is no evidence of cervical spine fracture or subluxation. ACT 112: Negative or not required by law. Electronically signed by: Hernán Coker M.D. 04/22/2024 5:34 PM
--- NOTE | 2024-04-22 17:40 | CT Scan Report ---
CT SCAN OF THE BRAIN WITHOUT IV CONTRAST CLINICAL HISTORY: Head injury. Change in mental status. COMPARISON STUDY: No priors. TECHNIQUE: Unenhanced axial CT scan of the brain is performed from the vertex to the skull base. A d ose lowering technique was utilized adhering to the principles of ALARA. FINDINGS: An endotracheal tube is noted on the business case analyst tomogram. Brain parenchyma: The brain parenchyma is normal in appearance. There is no hemorrhage, mass effect, or evidence of acute territorial ischemia by CT criteria. Lorenzo-white matter differentiation is preser tarun. No extra-axial fluid collection is seen. Ventricles, sulci, cisterns: Normal in configuration. Intracranial vasculature: There is atherosclerotic calcification of the cavernous carotid and vertebr al arteries. Calvarium: No depressed calvarial fracture is seen. Soft tissues: There is a posterior scalp contusion/laceration. Sinuses and mastoids: There is mild mucosal thickening in right sphenoid sinus. The remaining visuali zed paranasal sinuses are clear. The mastoid air cells are well pneumatized. Orbits: The bony orbits are grossly intact. There are bilateral ocular lens implants. IMPRESSION: 1. There is no hemorrhage, mass effect, or evidence of acute territorial ischemia by CT criteria. 2. Posterior scalp injury. ACT 112: Negative or not required by law. Electronically signed by: Hernán Coker M.D. 04/22/2024 5:38 PM
[2024-04-22 17:43] LABS: Albumin Globulin Ratio 2.3 (0.9-2); BUN Creatinine Ratio 12.2 (10-20); Bilirubin,Total 0.4 mg/dl (0.2-1.0); Calcium 9.2 mg/dl (8.6-10.3); Creatinine Clr Calc Pharmacy 92.7 ml/min; Est GFR (African American) 95.4 ml/min; Est GFR (Non-African American) 82.3 ml/min; Globulin 2.2 gm/dl (2.5-4.0); Magnesium 2.2 mg/dl (1.7-2.4); Potassium 3.2 mmol/L (3.5-5.1); Total Protein 7.2 gm/dl (6.0-8.3)
[2024-04-22 17:48] LABS: Acetaminophen < 3 ug/ml (10-30); Salicylate < 3.0 mg/dl (3.0-30)
[2024-04-22 17:50] LABS: Troponin I High Sensitivity 4.3 pg/ml (0-20)
[2024-04-22 17:51] LABS: Prothrombin Time 10.5 Seconds (9.0-12.0)
[2024-04-22] MEDS: SODIUM CHLORIDE 0.9% 2,000 ML IV ONE (17:52)
[2024-04-22 17:59] LABS: Thyroid Stimulating Hormone 1.394 uIu/ml (0.300-4.500)
[2024-04-22] MEDS: STAT IV Infusion **Titration per Protocol STA (18:02)
[2024-04-22] MEDS: PROPOFOL IV EMULSION 10 MG/ML 100 ML VIAL IV ONE (18:02)
[2024-04-22 18:09] LABS: Appearance Urine Clear (Clear); Bacteria Urine Automated None Seen (None Seen); Bilirubin Urine Negative (Negative); Blood Urine Negative (Negative); Cast Urine Automated 0-2 /lpf (0-2); Color Urine Yellow; Epithelial Cell Urine Auto 0-2 /hpf (0-2); Glucose Urine UA Negative (Negative); Ketones Urine Trace (Negative); Leukocyte Esterase Urine Negative (Negative); Nitrite Urine Negative (Negative); Protein Urine 1+ (Negative); RBC Urine Automated 0-2 /hpf (0-2); Specific Gravity Urine 1.018 (1.000-1.030); Urobilinogen Urine Negative (Negative); WBC Urine Automated 0-5 /hpf (0-5); pH Urine 5.5 (4.5-7.5)
[2024-04-22] MEDS ORDERED: LORazepam 1 MG in SYRINGE 0.5 ML IV PRN (18:13)
[2024-04-22] MEDS ORDERED: MIDAZOLAM HCL 1 MG/ML 2ML VIAL IV PRN ×2 (18:31→18:33)
[2024-04-22] MEDS ORDERED: fentaNYL BOLUS from BAG IV PRN (18:31)
[2024-04-22] MEDS ORDERED: STAT IV Infusion **Titration per Protocol STA (18:31)
[2024-04-22 18:36] LABS: Adenovirus PCR Not Detected (NotDetected); Bordetella parapertussis PCR Not Detected (NotDetected); Bordetella pertussis PCR Not Detected (NotDetected); Chlamydia pneumoniae PCR Not Detected (NotDetected); Coronavirus 229E PCR Not Detected (NotDetected); Coronavirus CoV-2 (COVID19)PCR Not Detected (NotDetected); Coronavirus HKU1 PCR Not Detected (NotDetected); Coronavirus NL63 PCR Not Detected (NotDetected); Coronavirus OC43PCR Not Detected (NotDetected); Human Metapneumovirus PCR Not Detected (NotDetected); Influenza A PCR Not Detected (NotDetected); Influenza B PCR Not Detected (NotDetected); Mycoplasma pneumoniae PCR Not Detected (NotDetected); Parainfluenza Virus 1 PCR Not Detected (NotDetected); Parainfluenza Virus 2 PCR Not Detected (NotDetected); Parainfluenza Virus 3 PCR Not Detected (NotDetected); Parainfluenza Virus 4 PCR Not Detected (NotDetected); Respiratory Syncytial VirusPCR Not Detected (NotDetected); Rhinovirus/Enterovirus PCR Not Detected (NotDetected)
--- NOTE | 2024-04-22 18:37 | History & Physical Report ---
Date of Service April 22, 2024 Assessment & Plan (1) Alcohol intoxication: (2) Metabolic encephalopathy: (3) History of alcohol use disorder: (4) Laceration of occipital scalp: (5) CAD (coronary artery disease): (6) Hypertension: (7) High cholesterol: (8) OCD (obsessive compulsive disorder): (9) Social anxiety disorder: Plan: 63-year-old male with PMHx of CAD, HLD, HTN, GERD, enlarged prostate, eczema, history of cocaine abuse, history of alcohol use disorder, OCD, social anxiety disorder who presented to the hospital from [facility] due to agitation, altered mental status, concern for alcohol intoxication. Guards present at bedside states that the patient has fermented fruit, creating some form of alcohol and ingested it. At some point earlier during this today he fell and sustained a laceration on his posterior scalp which has bled profusely. He was very combative, aggressive, and was spitting and the guards faces during transport. He was sprayed with pepper spray by guards. Versed was ordered through chain of command from the ER to give and route, and a spit mask was placed on the patient. Upon arrival here he was slurring his words, but still combative and agitated. Alcohol intoxication Metabolic encephalopathy secondary to the above None anion gap metabolic acidosis due to alcohol ingestion Lactic Acidosis Hypokalemia -Admit to ICU -Currently received propofol IV 20 mg bolus x 2, on 20mg/kg/hr --12.5 mg/hr infusion currently. Still appears to have muscle spasm, worsened with examination of patient. -Fentanyl bolus + gtt initiated. versed 2mg Q2H IV prn - NS + D5W @ 125ml/hr -Patient is acutely intoxicated, EtOH 331 on arrival, lactate 4.0 - repeat lactate pending, does not appear to have other infectious source causing elevation, afebrile and no leukocytosis, RVP negative - VBG initially with pH 7.31, pCo2 49, pO2 66, HCO3 25 - Rush cath placed in ER - AWASS protocol, IV Ativan as needed - UDS completed and is positive for benzodiazepines - Replace KCl+ IV Scalp lesion d/t fall -Appears to be approximately 4 cm in length, not yet stapled, will need lesion closed prior to moving to ICU -CT of the head and CT neck is reviewed personally, no acute intercranial findings or abnormalities, no fracture of cervical spine History of CAD HTN HLD -EKG is reviewed, 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 while intubated CODE: Full code Dispo: From home, likely to remain in the hospital x 2 days A total of 105 minutes were spent involving critical care, and greater than 50% of that time face to face with the patient, personally reviewing all current laboratories, imaging studies, past medication reconciliation, outpatient chart review, and discussion with specialists to collaborate care for the patient with attending. Please see attending documentation for corrections and/or additions. History of Present Illness Chief Complaint: Etoh intoxication Primary Care Provider: GEREMIAS Briscoe This is a 63-year-old male with PMHx of CAD, HLD, HTN, GERD, enlarged prostate, eczema, history of cocaine abuse, history of alcohol use disorder, OCD, social anxiety disorder who presented to the hospital from [facility] due to agitation, altered mental status, concern for alcohol intoxication. Guards present at bedside states that the patient has fermented fruit, creating some form of alcohol and ingested it. At some point earlier during this today he fell and sustained a laceration on his posterior scalp which has bled profusely. He was very combative, aggressive, and was spitting and the guards faces during transport. He was sprayed with pepper spray by guards. Versed was ordered through chain of command from the ER to give and route, and a spit mask was placed on the patient. Upon arrival here he was slurring his words, but still combative and agitated. Due to this patient was dosed with propofol and intubated. He is found to have an alcohol level of 331 on presentation, lactate of 4.0, VBG with pH of 7.31, no anion gap, hypokalemia with potassium of 3.2. Allergies Allergy/AdvReac Type Severity Reaction Status Date / Time lisinopril Allergy Unknown Unknown Unverified 03/18/23 19:52 Hdthkoy-LIH-BrD Reductase AdvReac LEG CRAMPS Verified 03/18/23 19:52 Inhibitor [Tzlsvtn-Epy-Xol Reductase Inhibitor] Past Med/Surg History Problem List (Updated 04/22/24 @ 18:45 by Kassy Moseley PA-C) Metabolic encephalopathy Laceration of occipital scalp (Acute) Head injury (Acute) Alcohol intoxication (Acute) AMS (altered mental status) (Acute) Umbilical hernia without mention of obstruction or gangrene Bilateral inguinal hernia (BIH) Medical History Anxiety CAD (coronary artery disease) Depression Eczema Enlarged prostate GERD (gastroesophageal reflux disease) High cholesterol History of alcohol use disorder Hx of cocaine abuse Hypertension OCD (obsessive compulsive disorder) Right inguinal hernia Social anxiety disorder Surgical History History of cataract surgery RT/LEFT Hx of hernia repair Hx of inguinal hernia surgery (10/19/19) Laparoscopic Right Recurrent Inguinal Hernia Repair with Mesh, Left Laparoscopic Inguinal Hernia Repair with Mesh; Open Umbilical Hernia Repair; Enterolysis Dr. 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: No Beliefs That Will Affect Care: None Current Living Situation: Other Current Living Situation Comment: [facility] Feels Safe at Home: Yes Review of Systems Review of Systems: Unobtainable due to endotracheal tube Physical Exam Physical Exam: General: asleep and sedated on propofol, no apparent distress, is shivering/quivering when he is examined by people Head: Normocephalic, + posterior scalp lesion about 4cm in length, clotted, has not been stapled at time of my exam, dried blood over scalp Chest: Clear to auscultation, intubated Cardiac: Regular rate and rhythm, HR in mid 60s, BP is 114/80s, no murmur, no JVD, normal peripheral pulses, good capillary refill Abdominal: NABS x 4 quadrants, soft, nondistended, nontender to palpation, no rebound or guarding Extremities: Normal inspection, no peripheral edema or erythema, calfs nontender to palpation Psych: Normal mood and affect Neuro: sedated Results & Data Results & Data Vital Signs (Past 12 Hours) Vital Signs Pulse Resp BP Pulse Ox O2 Del Method FiO2 04/22/24 17:39 81 16 95 40 04/22/24 17:02 Mechanical Vent 04/22/24 16:57 94 04/22/24 16:56 94 H 04/22/24 16:45 96 H 31 H 134/89 94 Room Air Laboratory Results 04/22/24 04/22/24 04/22/24 17:44 17:10 17:08 WBC 7.77 RBC 5.21 Hgb 15.8 Hct 44.3 MCV 85.0 MCH 30.3 MCHC 35.7 RDW Std Deviation 37.2 RDW Coeff of Lissa 12.2 Plt Count 388 MPV 9.0 L Immature Gran % (Auto) 1.0 Neut % (Auto) 75.2 Lymph % (Auto) 14.0 [place] % (Auto) 7.3 Eos % (Auto) 1.3 Baso % (Auto) 1.2 Neut # (Auto) 5.84 Lymph # (Auto) 1.09 L [place] # (Auto) 0.57 Eos # (Auto) 0.10 Baso # (Auto) 0.09 Immature Gran # (Auto) 0.08 PT 10.5 INR 1.0 VBG pH 7.31 L VBG pCO2 49 VBG pO2 66 VBG HCO3 25 VBG O2 Saturation 90.5 VBG Base Excess -2.1 Sodium 135 L Potassium 3.2 L Chloride 97 L Carbon Dioxide 24 Anion Gap 14 H BUN 12 Creatinine 0.98 Est Cr Clr Drug Dosing 92.7 Est GFR ( Amer) 95.4 Est GFR (Non-Af Amer) 82.3 BUN/Creatinine Ratio 12.2 Glucose 122 H POC Glucose Lactate 4.0 H* Calcium 9.2 Magnesium 2.2 Total Bilirubin 0.4 AST 25 ALT 36 Alkaline Phosphatase 77 Total Creatine Kinase 145 Troponin I High Sens 4.3 Total Protein 7.2 Albumin 5.0 Globulin 2.2 L Albumin/Globulin Ratio 2.3 H TSH 1.394 Urine Color Yellow Urine Appearance Clear Urine pH 5.5 Ur Specific [place] 1.018 Urine Protein 1+ H Urine Glucose (UA) Negative Urine Ketones Trace H Urine Blood Negative Urine Nitrite Negative Urine Bilirubin Negative Urine Urobilinogen Negative Ur Leukocyte Esterase Negative Urine WBC (Auto) 0-5 Urine RBC (Auto) 0-2 U Hyaline Cast (Auto) 0-2 U Epithel Cells (Auto) 0-2 Urine Bacteria (Auto) None Seen Salicylates < 3.0 L Acetaminophen < 3 L Ethyl Alcohol mg/dL 331.0 H Adenovirus (PCR) Not Detected B. pertussis DNA (PCR) Not Detected B.parapertussis DNA PCR Not Detected C. pneumoniae DNA (PCR) Not Detected Coronavirus OC43 (PCR) Not Detected Coronavirus HKU1 (PCR) Not Detected Coronavirus 229E (PCR) Not Detected SARS-CoV-2 (PCR) Not Detected Coronavirus NL63 (PCR) Not Detected Human Metapneumovir PCR Not Detected Influenza Type A (PCR) Not Detected Influenza Type B (PCR) Not Detected M. pneumoniae (PCR) Not Detected Parainfluenza 1 (PCR) Not Detected Parainfluenza 2 (PCR) Not Detected Parainfluenza 3 (PCR) Not Detected Parainfluenza 4 (PCR) Not Detected RSV (PCR) Not Detected Entero/Rhino (PCR) Not Detected 04/22/24 16:53 WBC RBC Hgb Hct MCV MCH MCHC RDW Std Deviation RDW Coeff of Lissa Plt Count MPV Immature Gran % (Auto) Neut % (Auto) Lymph % (Auto) [place] % (Auto) Eos % (Auto) Baso % (Auto) Neut # (Auto) Lymph # (Auto) [place] # (Auto) Eos # (Auto) Baso # (Auto) Immature Gran # (Auto) PT INR VBG pH VBG pCO2 VBG pO2 VBG HCO3 VBG O2 Saturation VBG Base Excess Sodium Potassium Chloride Carbon Dioxide Anion Gap BUN Creatinine Est Cr Clr Drug Dosing Est GFR ( Amer) Est GFR (Non-Af Amer) BUN/Creatinine Ratio Glucose POC Glucose 122 H Lactate Calcium Magnesium Total Bilirubin AST ALT Alkaline Phosphatase Total Creatine Kinase Troponin I High Sens Total Protein Albumin Globulin Albumin/Globulin Ratio TSH Urine Color Urine Appearance Urine pH Ur Specific [place] Urine Protein Urine Glucose (UA) Urine Ketones Urine Blood Urine Nitrite Urine Bilirubin Urine Urobilinogen Ur Leukocyte Esterase Urine WBC (Auto) Urine RBC (Auto) U Hyaline Cast (Auto) U Epithel Cells (Auto) Urine Bacteria (Auto) Salicylates Acetaminophen Ethyl Alcohol mg/dL Adenovirus (PCR) B. pertussis DNA (PCR) B.parapertussis DNA PCR C. pneumoniae DNA (PCR) Coronavirus OC43 (PCR) Coronavirus HKU1 (PCR) Coronavirus 229E (PCR) SARS-CoV-2 (PCR) Coronavirus NL63 (PCR) Human Metapneumovir PCR Influenza Type A (PCR) Influenza Type B (PCR) M. pneumoniae (PCR) Parainfluenza 1 (PCR) Parainfluenza 2 (PCR) Parainfluenza 3 (PCR) Parainfluenza 4 (PCR) RSV (PCR) Entero/Rhino (PCR) Diagnostic Findings Head CT 04/22/24 17:02 CT SCAN OF THE BRAIN WITHOUT IV CONTRAST CLINICAL HISTORY: Head injury. Change in mental status. COMPARISON STUDY: No priors. TECHNIQUE: Unenhanced axial CT scan of the brain is performed from the vertex to the skull base. A dose lowering technique was utilized adhering to the principles of ALARA. FINDINGS: An endotracheal tube is noted on the care giver tomogram. Brain parenchyma: The brain parenchyma is normal in appearance. There is no hemorrhage, mass effect, or evidence of acute territorial ischemia by CT criteria. Lorenzo-white matter differentiation is preserved. No extra-axial fluid collection is seen. Ventricles, sulci, cisterns: Normal in configuration. Intracranial vasculature: There is atherosclerotic calcification of the cavernous carotid and vertebral arteries. Calvarium: No depressed calvarial fracture is seen. Soft tissues: There is a posterior scalp contusion/laceration. Sinuses and mastoids: There is mild mucosal thickening in right sphenoid sinus. The remaining visualized paranasal sinuses are clear. The mastoid air cells are well pneumatized. Orbits: The bony orbits are grossly intact. There are bilateral ocular lens implants. IMPRESSION: 1. There is no hemorrhage, mass effect, or evidence of acute territorial ischemia by CT criteria. 2. Posterior scalp injury. ACT 112: Negative or not required by law. Electronically signed by: Hernán Coker M.D. 04/22/2024 5:[address] 04/22/24 17:03 CT SCAN OF THE CERVICAL SPINE CLINICAL HISTORY: Head injury. Change in mental status COMPARISON STUDY: No priors. TECHNIQUE: CT scan of the cervical spine is performed from the skull base to the upper thoracic spine. Images are reviewed in the axial, sagittal, and coronal planes. IV contrast was not administered for this examination. A dose lowering technique was utilized adhering to the principles of ALARA. CT DOSE: 1159. mGy.cm FINDINGS: An endotracheal tube is noted on the care giver tomogram. Skeletal structures: The skeletal structures are well mineralized. There is no evidence of fracture or subluxation involving the cervical spine. Vertebral body height and alignment are maintained. There is straightening of the cervical lordosis. Anterior osteophytes are seen throughout. The odontoid process and lateral masses are intact. The atlantoaxial articulation is preserved noting mild productive degenerative change. The spinous processes appear intact. There is mild multilevel facet arthropathy. Intervertebral discs: There is moderate disc space narrowing at C6-C7 and C7-T1. The remaining disc spaces appear maintained. Central canal: Posterior disc osteophyte complexes at C5-C6 and C6-C7 may contribute to acquired compromise of the central canal. Soft tissues: The prevertebral and paraspinous soft tissues are within normal limits. There is atherosclerotic calcification of the carotid bulbs. Roland secretions are noted throughout the pharynx. Calvarium: The visualized calvarium at the skull base appears intact. Brain parenchyma: Partially visualized brain parenchyma at the skull base is within normal limits. Sinuses and mastoids: The visualized paranasal sinuses are clear. The mastoid air cells are well pneumatized. Lung apices: Clear as visualized. IMPRESSION: There is no evidence of cervical spine fracture or subluxation. ACT 112: Negative or not required by law. Electronically signed by: Hernán Coker M.D. 04/22/2024 5:34 PM ECG Additional Comments: Reviewed personally showing normal sinus rhythm, no acute ST wave inversions or signs of ischemia. Code Status & VTE Plan Code Status Full code VTE Prophylaxis Plan VTE Prophylaxis will be ordered: Yes Supervising Physician Co-Signing Physician Notes Patient seen and examined at bedside. Discussed with above provider. 63-year-old male from senior living presented to the hospital with alcohol intoxication and agitation. He was intubated in the emergency department for increasing agitation and started on sedation with propofol. Lab work today reveals lactic acidosis, elevated blood alcohol level and anion gap metabolic acidosis and hyperkalemia. Discussed with the ED provider; posterior scalp laceration to be sutured. Currently sedated with propofol; fentanyl and Versed is added. High-dose thiamine and fluids. Continue vent management as per ICU. Wean off sedation as tolerated. Discussed with ICU provider as well. I have reviewed the advanced practitioner's documentation, and I agree with, and take responsibility for the plan of care Time critical spent evaluating patient, direct bedside care, chart review, placing orders, interpretation of diagnostic studies, discussion with consultants as well as other required patient management activities is 31 stella susy Please note the above document was generated using voice recognition software. It may contain grammatical, syntax or spelling errors. Any formal questions or concerns about the content, text or information contained within the body of this dictation should be directly addressed to the provider for clarification
[2024-04-22] MEDS: fentaNYL citrate 2,500 MCG/250 ML BAG IV SCH (18:43)
[2024-04-22 18:50] LABS: Amphetamines+Metham, Urine Neg (Neg); Barbiturates, Urine Neg (Neg); Benzodiazepine, Urine Pos (Neg); Cocaine, Urine Neg (Neg); Fentanyl, Urine Neg (Neg); MDMA (Ecstacy), Urine Neg (Neg); Marijuana, Urine Neg (Neg); Methadone, Urine Neg (Neg); Opiate, Urine Neg (Neg); Phencyclidine, Urine Neg (Neg)
--- NOTE | 2024-04-22 18:57 | XRay Report ---
SINGLE VIEW CHEST CLINICAL HISTORY: Respiratory failure. Generalized weakness. Head injury. FINDINGS: An AP, portable, supine chest radiograph is obtained. No prior studies are available for co mparison at the time of dictation. An endotracheal tube has been placed. The tip projects approximate ly 3 cm above the anthony. The heart is enlarged. There is pulmonary vascular congestion. Scarring/ate lectasis is noted at the lung bases. No airspace consolidation or large pleural effusion is identifie d. No pneumothorax is seen. The bony thorax is grossly intact. Arthritic change is noted in the shoul ders. IMPRESSION: 1. An endotracheal tube has been placed as above. 2. Cardiomegaly with pulmonary vascular congestion. 3. No airspace consolidation or large pleural effusion is identified. ACT 112: Negative or not required by law. Electronically signed by: Hernán Coker M.D. 04/22/2024 6:56 PM
--- NOTE | 2024-04-22 18:58 | Critical Care Consultation ---
Date of Consultation April 22, 2024 Assessment & Plan (1) Alcohol intoxication: (2) Metabolic encephalopathy: (3) Laceration of occipital scalp: (4) On mechanically assisted ventilation: Plan Reason Critically Ill: 63 YOM admitted from [facility] for agitated and combative behavior with suspicion of ingestion - intubated in the EMD, ETOH level >300 with AGAP 14. Neuro - Encephalopathy, Alcohol ingestion/intoxication, sedation for mechanical ventilation scalp laceration, MDD/Anxiety [facility] ICU: [facility] - Encephalopathy at this time appears to be caused by alcohol ingestion - see further in renal/lytes section - Sedation for mechanical ventilation - propofol/fentanyl- goal GILMA -1 - Head laceration primary closure by EMD- no hematoma noted- head and cervical spine films interpreted as no acute fracture/sublux, hemorrhage/mass - Thiamine and Folate - Wean sedation as appropriate in am with SBT - Introduce home medications for MDD/OCD/Anxiety when extubated Cardiac - HTN, HLD, CAD - all history of with currently no acute needs - maintain MAPS >65 - currently without need for vasoactive medications - QTC ok at this time Respiratory - Mechanical Ventilation following intubation - wean as able, extubate when appropriate GI - GERD - Continue PPI RENAL/LYTES - ETHO intoxication, Metabolic AGAP acidosis, lactic acidosis, - Patient is prisoner with an ETOH level of >300- concern for ingestion - Toxic ETOH Levels are send out so likely not helpful in acute management at this time - glucose is 122 - renal function currently normal - GAP acidosis - 14, HCO3 23, Lactate 4.1 - osmolar gap - ( -22) - calcium is normal and no crystals reported in urine - Follow gap, lactic acidosis, renal function - as ETOH level drops (long elimination time by either methanol/glycol) then may need further management at that time- consider fomepizole based on gap but at this time negative oslmolar gap - will cycle BMP and lactate q4 hours overnight - - Urine Tox- negative except for benzos- which he did receive per medical command instruction prior - Plasmalyte at 125 - Thiamine and folic acid - No acute needs - Condon to gravity ENDO - No acute needs at this time - ICU hyper/hypoglycemic protocol HEME - No acute needs ID - No concern for infectious etiology at this time LINES/IV ACCESS - PIV, condon, OGT, ETT, Continue use of these lines DVT PROPHYLAXIS - SCDS DISPO: ICU while intubated and sedated I have personally spent 50 minutes of critical care time in the direct management of this patient. This is a life/limb threatening event. This includes time spent evaluating patient, direct bedside care, chart review, placing orders, interpretation of diagnostic studies, discussion with consultants, patient, and family members, as well as other required patient management activities. This time is exclusive of all separately billable procedures, and teaching time and separate from and in addition to any other critical care service time. Thank you for allowing us to participate in the care of this patient. Please refer to my attending physician's documentation for any further recommendations. Supervising Physician Co-Signing Physician Notes I agree with assessment and plan of Emily SENA. History of Present Illness Reason for Consultation: encephalopathy requiring emergent intubation Requesting Physician: Watson Maki Attending Physician: Watson Maki History of Present Illness 63 YOM with meidcal history of: ETOH use disorder, cocaine use disorder, HLD, MDD, Anxiety, OCD, GERD, Eczema. Patient was brought to the EMD today for concerns of agitation, combativeness and suspicion for ingestion. He was noted to have head laceration on arrival as well. Reports from EMD show that patient was slurring words, moving all extremities and documented as NC II-XII as grossly intact on arrival. He did remain combative spitting at staff and reported GCS of 11. With concern of head laceration and agitation he required intubation to assist with advanced imaging as well as managing behavior. Head and cervical spine CT scan was interpreted as negative. On his lab review, he was noted with ETOH level >300, Lactate of 4.1, Gap of 14. Toxicology screen negative at this time. Patient will be admitted to the ICU to continue workup for ingestion/methy/ethyl alcohol and hopeful to wean to extubation in the AM. Will add serum and urine osmo levels now, VBG now. Trend lactate and renal functioins. ETOH level in the AM. Thiamine and folate. CODE: FULL Allergies Allergy/AdvReac Type Severity Reaction Status Date / Time lisinopril Allergy Unknown Unknown Unverified 04/22/24 19:11 Pltrzxp-SKJ-[id number] Reductase AdvReac LEG CRAMPS Verified 04/22/24 19:11 Inhibitor [Fkpcfmv-Wsc-Pnf Reductase Inhibitor] Home Medications Medication Instructions Recorded Confirmed Type amlodipine 10 mg tablet 10 mg PO DAILY 04/22/24 04/22/24 History aspirin 81 mg tablet,delayed 81 mg PO DAILY 04/22/24 04/22/24 History release buspirone 10 mg tablet 20 mg PO DAILY 04/22/24 04/22/24 History chlorthalidone 25 mg tablet 25 mg PO DAILY 04/22/24 04/22/24 History ezetimibe 10 mg tablet (Zetia) 10 mg PO DAILY 04/22/24 04/22/24 History fluoxetine 20 mg capsule 100 mg PO DAILY 04/22/24 04/22/24 History lamotrigine 100 mg tablet 200 mg PO DAILY 04/22/24 04/22/24 History omega-3 fatty acids 1,000 mg 1,000 mg PO BID 04/22/24 04/22/24 History capsule omeprazole 20 mg tablet,delayed 20 mg PO DAILY 04/22/24 04/22/24 History release tamsulosin 0.4 mg capsule 0.4 mg PO DAILY 04/22/24 04/22/24 History Patient History Medical History Acute appendicitis Right inguinal hernia OCD (obsessive compulsive disorder) Social anxiety disorder History of alcohol use disorder Encounter for pre-operative examination Hx of cocaine abuse Depression Eczema Enlarged prostate GERD (gastroesophageal reflux disease) Anxiety High cholesterol CAD (coronary artery disease) Hypertension Surgical History Hx of inguinal hernia surgery (10/19/19) Laparoscopic Right Recurrent Inguinal Hernia Repair with Mesh, Left Laparoscopic Inguinal Hernia Repair with Mesh; Open Umbilical Hernia Repair; Enterolysis Dr. Jason 10-19-19 History of cataract surgery RT/LEFT Hx of hernia repair Hx of resection of liver PARTIAL Hx of vascular surgery LEFT Social History Smoking Status: Unknown if ever smoked Second Hand Exposure: No; Do You Dip or Chew Tobacco: No; Tobacco Cessation Education Requested by Patient: No (unable to provide, pt intubated) Hx Alcohol Use: Yes Alcohol type: hard liquor Hx Substance Use: Yes Last Used Substance: Just Prior to Arrival Last Used Substance Other:: ingestion of fermented fruit pror to arrival Preferred Language: Austrian Communication Ability: Unable Communication Ability Comment: pt intuabated Resident Care Technician Required: No Beliefs That Will Affect Care: None Current Living Situation: Other Current Living Situation Comment: [facility] Other Information That Helps Us Care for You: No Feels Safe at Home: Declines to Answer Assistive Devices: None Assistive Devices Comment: unable to provide, pt intubated Review of Systems Review of Systems: unable to perform secondary to intubation and sedation Physical Exam Physical Exam: PHYSICAL EXAM: General: Intubated and Sedated Head: Head is shaved with noted blood as well as posterior head laceration that has been primaryly closed by stapling by the EMD provider. Neuro: PEERLA, moving head side to side and localizes pain, overbreathing vent, +cough/gag Chest: equal rise and fall of the chest, no accessory muscle use, no heaves or thrills, Clear to auscultation, on room air, Cardiac: Regular rate and rhythm, telemetry reviewed, skin warm dry, cap refill <3 seconds, peripheral pulses +2 no JVD, no murmur, no edema GI: NABS x 4 quadrants, soft, nontender to palpation, no rebound, guarding or tenderness : Condon to gravity draining ligh elver urine Extremities: Normal inspection, no peripheral edema or erythema, calfs nontender to palpation Psych: Normal mood and affect Skin: no rash or erythema Results & Data Results & Data Vital Signs (Past 12 Hours) Vital Signs Pulse Pulse Resp BP BP Pulse Ox O2 Del Method 04/22/24 18:51 59 L 16 114/65 95 Mechanical Vent 04/22/24 17:39 81 16 95 04/22/24 17:02 Mechanical Vent 04/22/24 16:57 94 04/22/24 16:56 94 H 04/22/24 16:45 96 H 31 H 134/89 94 Room Air FiO2 04/22/24 18:51 04/22/24 17:39 40 04/22/24 17:02 04/22/24 16:57 04/22/24 16:56 04/22/24 16:45 Laboratory Results Abnormal lab results 04/22/24 04/22/24 04/22/24 Range/Units 16:53 17:08 17:10 MPV 9.0 L (9.4-12.4) fL Lymph # (Auto) 1.09 L (1.20-3.40) K/uL VBG pH 7.31 L (7.36-7.41) Sodium 135 L (136-145) mmol/L Potassium 3.2 L (3.5-5.1) mmol/L Chloride 97 L (98-107) mmol/L Anion Gap 14 H (3-11) Glucose 122 H (70-99(Fasting)) mg/dl POC Glucose 122 H (70-99) mg/dl Lactate 4.0 H* (0.4-2.0) mmol/L Globulin 2.2 L (2.5-4.0) gm/dl Albumin/Globulin Ratio 2.3 H (0.9-2) Urine Protein (Negative) Urine Ketones (Negative) Salicylates < 3.0 L (3.0-30) mg/dl Acetaminophen < 3 L (10-30) ug/ml U Benzodiazepines Scrn (Neg) Ethyl Alcohol mg/dL 331.0 H (<10.0) mg/dl 04/22/24 04/22/24 Range/Units 17:44 19:06 MPV (9.4-12.4) fL Lymph # (Auto) (1.20-3.40) K/uL VBG pH 7.31 L (7.36-7.41) Sodium (136-145) mmol/L Potassium (3.5-5.1) mmol/L Chloride (98-107) mmol/L Anion Gap (3-11) Glucose (70-99(Fasting)) mg/dl POC Glucose (70-99) mg/dl Lactate (0.4-2.0) mmol/L Globulin (2.5-4.0) gm/dl Albumin/Globulin Ratio (0.9-2) Urine Protein 1+ H (Negative) Urine Ketones Trace H (Negative) Salicylates (3.0-30) mg/dl Acetaminophen (10-30) ug/ml U Benzodiazepines Scrn Pos H (Neg) Ethyl Alcohol mg/dL (<10.0) mg/dl Diagnostic Findings Chest X-Ray 04/22/24 17:02 SINGLE VIEW CHEST CLINICAL HISTORY: Respiratory failure. Generalized weakness. Head injury. FINDINGS: An AP, portable, supine chest radiograph is obtained. No prior studies are available for comparison at the time of dictation. An endotracheal tube has been placed. The tip projects approximately 3 cm above the anthony. The heart is enlarged. There is pulmonary vascular congestion. Scarring/atelectasis is noted at the lung bases. No airspace consolidation or large pleural effusion is identified. No pneumothorax is seen. The bony thorax is grossly intact. Arthritic change is noted in the shoulders. IMPRESSION: 1. An endotracheal tube has been placed as above. 2. Cardiomegaly with pulmonary vascular congestion. 3. No airspace consolidation or large pleural effusion is identified. ACT 112: Negative or not required by law. Electronically signed by: Hernán Coker M.D. 04/22/2024 6:[address] 04/22/24 17:02 CT SCAN OF THE BRAIN WITHOUT IV CONTRAST CLINICAL HISTORY: Head injury. Change in mental status. COMPARISON STUDY: No priors. TECHNIQUE: Unenhanced axial CT scan of the brain is performed from the vertex to the skull base. A dose lowering technique was utilized adhering to the principles of ALARA. FINDINGS: An endotracheal tube is noted on the contact worker lithography tomogram. Brain parenchyma: The brain parenchyma is normal in appearance. There is no hemorrhage, mass effect, or evidence of acute territorial ischemia by CT criteria. Lorenzo-white matter differentiation is preserved. No extra-axial fluid collection is seen. Ventricles, sulci, cisterns: Normal in configuration. Intracranial vasculature: There is atherosclerotic calcification of the cavernous carotid and vertebral arteries. Calvarium: No depressed calvarial fracture is seen. Soft tissues: There is a posterior scalp contusion/laceration. Sinuses and mastoids: There is mild mucosal thickening in right sphenoid sinus. The remaining visualized paranasal sinuses are clear. The mastoid air cells are well pneumatized. Orbits: The bony orbits are grossly intact. There are bilateral ocular lens implants. IMPRESSION: 1. There is no hemorrhage, mass effect, or evidence of acute territorial ischemia by CT criteria. 2. Posterior scalp injury. ACT 112: Negative or not required by law. Electronically signed by: Hernán Coker M.D. 04/22/2024 5:[address] 04/22/24 17:03 CT SCAN OF THE CERVICAL SPINE CLINICAL HISTORY: Head injury. Change in mental status COMPARISON STUDY: No priors. TECHNIQUE: CT scan of the cervical spine is performed from the skull base to the upper thoracic spine. Images are reviewed in the axial, sagittal, and coronal planes. IV contrast was not administered for this examination. A dose lowering technique was utilized adhering to the principles of ALARA. CT DOSE: 1159. mGy.cm FINDINGS: An endotracheal tube is noted on the contact worker lithography tomogram. Skeletal structures: The skeletal structures are well mineralized. There is no evidence of fracture or subluxation involving the cervical spine. Vertebral body height and alignment are maintained. There is straightening of the cervical lordosis. Anterior osteophytes are seen throughout. The odontoid process and lateral masses are intact. The atlantoaxial articulation is preserved noting mild productive degenerative change. The spinous processes appear intact. There is mild multilevel facet arthropathy. Intervertebral discs: There is moderate disc space narrowing at C6-C7 and C7-T1. The remaining disc spaces appear maintained. Central canal: Posterior disc osteophyte complexes at C5-C6 and C6-C7 may contribute to acquired compromise of the central canal. Soft tissues: The prevertebral and paraspinous soft tissues are within normal limits. There is atherosclerotic calcification of the carotid bulbs. Roland secretions are noted throughout the pharynx. Calvarium: The visualized calvarium at the skull base appears intact. Brain parenchyma: Partially visualized brain parenchyma at the skull base is within normal limits. Sinuses and mastoids: The visualized paranasal sinuses are clear. The mastoid air cells are well pneumatized. Lung apices: Clear as visualized. IMPRESSION: There is no evidence of cervical spine fracture or subluxation. ACT 112: Negative or not required by law. Electronically signed by: Hernán Coker M.D. 04/22/2024 5:34 PM Medications Administered Sodium Chloride (Nss) 2,000 mls @ 999 mls/hr IV .Q2H1M ONE Stop: 04/22/24 19:42 Last Admin: 04/22/24 17:52 Dose: 999 mls/hr Documented By: MARNI Propofol (Diprivan) 1,000 mg in 100 mls @ 12.012 mls/hr IV .Q8H20M [facility]; Protocol Stop: 04/25/24 17:59 Last Titration: 04/22/24 19:07 Dose: 35 mcg/kg/min, 21 mls/hr Documented By: Titration: 04/22/24 18:45 Dose: 25 mcg/kg/min, 15 mls/hr Documented By: Admin: 04/22/24 17:00 Dose: 20 mcg/kg/min, 12 mls/hr Documented By: MARNI Co-signed By: OLIVIA Fentanyl Citrate (Fentanyl Citrate) 2,500 mcg in 250 mls @ 2.5 mls/hr IV .Q96H [facility]; Protocol Stop: 05/06/24 18:44 Last Titration: 04/22/24 19:08 Dose: 50 mcg/hr, 5 mls/hr Documented By: MARNI Co-signed By: MUKESH Admin: 04/22/24 18:43 Dose: 25 mcg/hr, 2.5 mls/hr Documented By: MARNI Co-signed By: OLIVIA Propofol (Propofol Bolus From Bag) 20 mg IV Q5M PRN PRN Reason: Sedation Stop: 04/25/24 17:52 Last Admin: 04/22/24 18:51 Dose: 20 mg Documented By: MARNI Co-signed By: MUKESH Admin: 04/22/24 18:08 Dose: 20 mg Documented By: MARNI Co-signed By: OLIVIA Admin: 04/22/24 17:07 Dose: 20 mg Documented By: MARNI Co-signed By: OLIVIA Discontinued Medications Miscellaneous (Rapid Sequence Induction Bag) Confirm Administered Dose 1 each N/A .STK-MED ONE Stop: 04/22/24 16:45 Last Admin: 04/22/24 16:44 Dose: 1 each Documented By: MARNI Miscellaneous (Stat Iv Infusion Titration Per Protocol) 1 each N/A NOW STA Stop: 04/22/24 17:54 Last Admin: 04/22/24 18:02 Dose: 1 each Documented By: MARNI Propofol (Propofol Iv Emulsion 10 Mg/Ml 100 Ml Vial) Confirm Administered Dose 1,000 mg IV .STK-MED ONE Stop: 04/22/24 16:59 Last Admin: 04/22/24 18:02 Dose: Not Given Documented By: MARNI ECG Additional Comments: Normal sinus rhythm Cannot rule out Inferior infarct , age undetermined Cannot rule out Anterior infarct , age undetermined Abnormal ECG No previous ECGs available QT/QTc 408/427 ms Coding Level of Care Code 30859 CRITICAL CARE 1ST 30-74M Diagnoses Alcohol intoxication F10.929 Metabolic encephalopathy G93.41 Laceration of occipital scalp S01.01XA On mechanically assisted ventilation Z99.11
[2024-04-22 19:16] LABS: Base Excess VBG -3.3 mEq/L; HCO3 VBG 23 mmol/L; Oxygen Saturation VBG 89.6 %; PCO2 VBG 46 mmHg (38-50); PO2 VBG 65 mmHg; pH VBG 7.31 (7.36-7.41)
[2024-04-22] MEDS: POTASSIUM CHLORIDE / WTR 10 MEQ/100 ML PLCT IV SCH (19:45)
[2024-04-22] MEDS: THIAMINE HCL 500 MG in SODIUM CHLORIDE 0.9% 50 ML IV SCH (19:49)
[2024-04-22] MEDS ORDERED: SODIUM CHLORIDE 0.9% 1,000 ML IV SCH (20:27)
[2024-04-22] MEDS: PLASMA-LYTE A 1,000 ML IV ONE (20:36)
[2024-04-22] MEDS: FOLIC ACID 1 MG in SYRINGE 9.8 ML IV ONE (20:37)
[2024-04-22] MEDS: ICU Protocol for HYPERglycemia SCH (21:19)
[2024-04-22] MEDS: PLASMA-LYTE A 1,000 ML IV SCH (21:42)
[2024-04-22] MEDS: D5W AND NSS 1,000 ML IV SCH (22:08)
[2024-04-22 23:24] LABS: BUN Creatinine Ratio 13.7 (10-20); Calcium 7.4 mg/dl (8.6-10.3); Creatinine Clr Calc Pharmacy 124.4 ml/min; Est GFR (African American) 115.2 ml/min; Est GFR (Non-African American) 99.4 ml/min; Potassium 3.4 mmol/L (3.5-5.1)
[2024-04-23 04:41] LABS: Basophils # (auto) 0.07 K/uL (0.00-0.20); Basophils % (auto) 0.7 %; Eosinophils # (auto) 0.12 K/uL (0.00-0.50); Eosinophils % (auto) 1.3 %; Hematocrit (blood only) 33.3 % (42.0-52.0); Hemoglobin 11.6 g/dl (14.0-18.0); Immature Granulocytes # (auto) 0.05 K/uL (0.01-0.20); Immature Granulocytes % (auto) 0.5 %; Lymphocytes % (auto) 13.9 %; Mean Corpuscular Hemoglobin 30.4 pg (25.0-34.0); Mean Corpuscular Hgb Conc 34.8 g/dL (32.0-36.0); Mean Corpuscular Volume 87.2 fL (80.0-100.0); Mean Platelet Volume 9.2 fL (9.4-12.4); Monocytes # (auto) 1.06 K/uL (0.11-0.59); Monocytes % (auto) 11.3 %; Neutrophils # (auto) 6.75 K/uL (1.40-6.50); Neutrophils % (auto) 72.3 %; Platelet Count 294 K/uL (130-400); RDW Coefficient of Variation 12.6 % (11.5-14.5); Red Blood Count 3.82 M/uL (4.70-6.10); White Blood Count 9.35 K/ul (4.8-10.8)
[2024-04-23 05:00] LABS: BUN Creatinine Ratio 14.9 (10-20); Creatinine Clr Calc Pharmacy 135.6 ml/min; Est GFR (African American) 119.4 ml/min; Magnesium 1.8 mg/dl (1.7-2.4); Phosphorus 2.9 mg/dl (2.5-4.9); Potassium 2.9 mmol/L (3.5-5.1)
[2024-04-23] MEDS: POTASSIUM CHLORIDE 20 MEQ/15 ML UDC PO STA (05:42)
[2024-04-23] MEDS: MAGNESIUM SULFATE / D5W 1 GM/100 ML BAG IV ONE (05:42)
[2024-04-23] MEDS: ICU ELECTROLYTE REPLACEMENT PROTOCOL SCH (05:43)
[2024-04-23] MEDS: POTASSIUM CHLORIDE / WTR 10 MEQ/100 ML PLCT IV SCH (06:45)
--- NOTE | 2024-04-23 08:06 | Critical Care Progress Note ---
Date of Service April 23, 2024 Assessment & Plan (1) Alcohol intoxication: (2) Metabolic encephalopathy: (3) Laceration of occipital scalp: (4) On mechanically assisted ventilation: Plan Reason Critically Ill: 63 YOM admitted [facility] for agitated and combative behavior with suspicion of ingestion - intubated in the EMD, ETOH level >300 with AGAP 14. Neuro - Encephalopathy, Alcohol ingestion/intoxication, sedation for mechanical ventilation scalp laceration, MDD/Anxiety [facility] ICU: ISMAEL -Encephalopathy: Likely acute alcohol intoxication -No indication of toxic alcohol ingestion based off of osmolar calculations -Suspect diversion versus consumption of sanitizing agents given that patient is incarcerated Mood disorder: Restart home meds when extubated Cardiac - HTN, HLD, CAD -Reinstitute home meds when extubated Respiratory -liberation from mechanical ventilation GI - GERD - Continue PPI: Home med RENAL/LYTES - ETHO intoxication, Metabolic AGAP acidosis, lactic acidosis, -Hypokalemia -40 mEq K-Dur by mouth this morning - No acute needs -Discontinue Rush later today ENDO - No acute needs at this time - ICU hyper/hypoglycemic protocol HEME - No acute needs ID - No concern for infectious etiology at this time LINES/IV ACCESS - PIV, DVT PROPHYLAXIS - SCDS Skin: Scalp laceration repaired by emergency department: [place] -No documentation of tetanus administration, tetanus toxoid DISPO: Patient became rigorous and febrile. Send blood cultures and procalcitonin. Admission and Anticipated Discharge Date Admission Date: April 22, 2024 Results & Data Results & Data Vital Signs (Past 12 Hours) Vital Signs Temp Pulse Pulse Resp BP BP BP 04/23/24 07:25 04/23/24 07:05 56 L 16 04/23/24 06:00 53 L 111/74 04/23/24 05:27 36.9 C 54 L 15 04/23/24 04:13 52 L 16 04/23/24 04:09 36.8 C 52 L 16 115/60 04/23/24 04:00 04/23/24 03:12 36.8 C 51 L 16 90/50 L 04/23/24 02:39 36.8 C 53 L 16 92/52 L 04/23/24 01:36 104/55 L 04/23/24 01:13 93/50 L 04/23/24 01:09 36.6 C 51 L 16 93/50 L 04/23/24 00:31 58 L 04/23/24 00:00 36.5 C 53 L 16 04/23/24 00:00 04/22/24 23:54 54 L 16 04/22/24 23:36 36.5 C 54 L 16 112/58 L 04/22/24 22:54 36.5 C 56 L 16 04/22/24 22:00 36.2 C L 61 20 138/119 H 04/22/24 21:17 04/22/24 21:06 36.4 C L 60 18 117/67 04/22/24 21:02 04/22/24 20:51 36.3 C L 58 L 20 04/22/24 20:42 04/22/24 20:32 143/82 H 04/22/24 20:27 61 17 04/22/24 20:27 36.8 C 61 18 121/67 04/22/24 20:17 56 L 16 Pulse Ox O2 Del Method FiO2 04/23/24 07:25 60 04/23/24 07:05 91 40 04/23/24 06:00 04/23/24 05:27 95 04/23/24 04:13 97 40 04/23/24 04:09 97 04/23/24 04:00 40 04/23/24 03:12 98 04/23/24 02:39 98 04/23/24 01:36 04/23/24 01:13 04/23/24 01:09 97 04/23/24 00:31 04/23/24 00:00 96 04/23/24 00:00 60 04/22/24 23:54 96 50 04/22/24 23:36 96 04/22/24 22:54 94 04/22/24 22:00 95 04/22/24 21:17 60 04/22/24 21:06 92 04/22/24 21:02 Mechanical Vent 60 04/22/24 20:51 94 04/22/24 20:42 60 04/22/24 20:32 04/22/24 20:27 88 L 04/22/24 20:27 92 Mechanical Vent 04/22/24 20:17 92 50 Critical Care Results & Data Vital Signs (Past 12 Hours) Vital Signs Temp Pulse Pulse Resp BP BP BP 04/23/24 07:25 04/23/24 07:05 56 L 16 04/23/24 06:00 53 L 111/74 04/23/24 05:27 36.9 C 54 L 15 04/23/24 04:13 52 L 16 04/23/24 04:09 36.8 C 52 L 16 115/60 04/23/24 04:00 04/23/24 03:12 36.8 C 51 L 16 90/50 L 04/23/24 02:39 36.8 C 53 L 16 92/52 L 04/23/24 01:36 104/55 L 04/23/24 01:13 93/50 L 04/23/24 01:09 36.6 C 51 L 16 93/50 L 04/23/24 00:31 58 L 04/23/24 00:00 36.5 C 53 L 16 04/23/24 00:00 04/22/24 23:54 54 L 16 04/22/24 23:36 36.5 C 54 L 16 112/58 L 04/22/24 22:54 36.5 C 56 L 16 04/22/24 22:00 36.2 C L 61 20 138/119 H 04/22/24 21:17 04/22/24 21:06 36.4 C L 60 18 117/67 04/22/24 21:02 04/22/24 20:51 36.3 C L 58 L 20 04/22/24 20:42 04/22/24 20:32 143/82 H 04/22/24 20:27 61 17 04/22/24 20:27 36.8 C 61 18 121/67 04/22/24 20:17 56 L 16 Pulse Ox O2 Del Method FiO2 04/23/24 07:25 60 04/23/24 07:05 91 40 04/23/24 06:00 04/23/24 05:27 95 04/23/24 04:13 97 40 04/23/24 04:09 97 04/23/24 04:00 40 04/23/24 03:12 98 04/23/24 02:39 98 04/23/24 01:36 04/23/24 01:13 04/23/24 01:09 97 04/23/24 00:31 04/23/24 00:00 96 04/23/24 00:00 60 04/22/24 23:54 96 50 04/22/24 23:36 96 04/22/24 22:54 94 04/22/24 22:00 95 04/22/24 21:17 60 04/22/24 21:06 92 04/22/24 21:02 Mechanical Vent 60 04/22/24 20:51 94 04/22/24 20:42 60 04/22/24 20:32 04/22/24 20:27 88 L 04/22/24 20:27 92 Mechanical Vent 04/22/24 20:17 92 50 Lab & Micro Results (Past 24 Hours) RBC 3.82 M/uL (4.70-6.10) L 04/23/24 WBC 9.35 K/ul (4.8-10.8) 04/23/24 Hgb 11.6 g/dl (14.0-18.0) L 04/23/24 Hct 33.3 % (42.0-52.0) L 04/23/24 MCV 87.2 fL (80.0-100.0) 04/23/24 MCH 30.4 pg (25.0-34.0) 04/23/24 MCHC 34.8 g/dL (32.0-36.0) 04/23/24 RDW Standard Deviation 40.0 fL (36.4-46.3) 04/23/24 RDW Coefficient of Variation 12.6 % (11.5-14.5) 04/23/24 Plt Count 294 K/uL (130-400) 04/23/24 MPV 9.2 fL (9.4-12.4) L 04/23/24 Neutrophils (%) (Auto) 72.3 % 04/23/24 Lymphocytes (%) (Auto) 13.9 % 04/23/24 Monocytes # (Auto) 1.06 K/uL (0.11-0.59) H 04/23/24 Eosinophils # (Auto) 0.12 K/uL (0.00-0.50) 04/23/24 Immature Granulocyte % (Auto) 0.5 % 04/23/24 Neutrophils # (Auto) 6.75 K/uL (1.40-6.50) H 04/23/24 Lymphocytes # (Auto) 1.30 K/uL (1.20-3.40) 04/23/24 Monocytes # (Auto) 1.06 K/uL (0.11-0.59) H 04/23/24 Eosinophils # (Auto) 0.12 K/uL (0.00-0.50) 04/23/24 Basophils # (Auto) 0.07 K/uL (0.00-0.20) 04/23/24 Immature Granulocyte # (Auto) 0.05 K/uL (0.01-0.20) 4 Na 135 mmol/L (136-145) L 04/23/24 K 2.9 mmol/L (3.5-5.1) L 04/23/24 Cl 102 mmol/L (98-107) 04/23/24 CO2 22 mmol/L (21-32) 04/23/24 Anion Gap 11 (3-11) 04/23/24 BUN 10 mg/dl (6-23) 04/23/24 Creatinine 0.67 mg/dl (0.6-1.4) 04/23/24 Estimated GFR ( Amer) 119.4 ml/min 04/23/24 Estimated GFR (Non-Af Amer) 103.0 ml/min 04/23/24 BUN/Creatinine Ratio 14.9 (10-20) 04/23/24 Glu 91 mg/dl (70-99(Fasting)) 04/23/24 Ca 7.0 mg/dl (8.6-10.3) L 04/23/24 Phosphorus Level 2.9 mg/dl (2.5-4.9) 04/23/24 Mg 1.8 mg/dl (1.7-2.4) 04/23/24 03:33 Calcium Level 7.0 mg/dl (8.6-10.3) L 04/23/24 03:33 Venous Blood pH 7.31 (7.36-7.41) L 04/22/24 19:06 Venous Blood Partial Pressure CO2 46 mmHg (38-50) 04/22/24 19:0 6 Venous Blood Partial Pressure O2 65 mmHg 04/22/24 19:06 Venous Blood HCO3 23 mmol/L 04/22/24 19:06 Venous Blood Base Excess -3.3 mEq/L 04/22/24 19:06 Venous Blood Oxygen Saturation 89.6 % 04/22/24 19:06 Diagnostic Findings (Past 24 Hours) Chest X-Ray 04/22/24 17:02 SINGLE VIEW CHEST CLINICAL HISTORY: Respiratory failure. Generalized weakness. Head injury. FINDINGS: An AP, portable, supine chest radiograph is obtained. No prior studies are available for comparison at the time of dictation. An endotracheal tube has been placed. The tip projects approximately 3 cm above the anthony. The heart is enlarged. There is pulmonary vascular congestion. Scarring/atelectasis is noted at the lung bases. No airspace consolidation or large pleural effusion is identified. No pneumothorax is seen. The bony thorax is grossly intact. Arthritic change is noted in the shoulders. IMPRESSION: 1. An endotracheal tube has been placed as above. 2. Cardiomegaly with pulmonary vascular congestion. 3. No airspace consolidation or large pleural effusion is identified. ACT 112: Negative or not required by law. Electronically signed by: Hernán Coker M.D. 04/22/2024 6:[address] 04/22/24 17:02 CT SCAN OF THE BRAIN WITHOUT IV CONTRAST CLINICAL HISTORY: Head injury. Change in mental status. COMPARISON STUDY: No priors. TECHNIQUE: Unenhanced axial CT scan of the brain is performed from the vertex to the skull base. A dose lowering technique was utilized adhering to the principles of ALARA. FINDINGS: An endotracheal tube is noted on the braided band assembler tomogram. Brain parenchyma: The brain parenchyma is normal in appearance. There is no hemorrhage, mass effect, or evidence of acute territorial ischemia by CT criteria. Lorenzo-white matter differentiation is preserved. No extra-axial fluid collection is seen. Ventricles, sulci, cisterns: Normal in configuration. Intracranial vasculature: There is atherosclerotic calcification of the cavernous carotid and vertebral arteries. Calvarium: No depressed calvarial fracture is seen. Soft tissues: There is a posterior scalp contusion/laceration. Sinuses and mastoids: There is mild mucosal thickening in right sphenoid sinus. The remaining visualized paranasal sinuses are clear. The mastoid air cells are well pneumatized. Orbits: The bony orbits are grossly intact. There are bilateral ocular lens implants. IMPRESSION: 1. There is no hemorrhage, mass effect, or evidence of acute territorial ischemia by CT criteria. 2. Posterior scalp injury. ACT 112: Negative or not required by law. Electronically signed by: Hernán Coker M.D. 04/22/2024 5:[address] 04/22/24 17:03 CT SCAN OF THE CERVICAL SPINE CLINICAL HISTORY: Head injury. Change in mental status COMPARISON STUDY: No priors. TECHNIQUE: CT scan of the cervical spine is performed from the skull base to the upper thoracic spine. Images are reviewed in the axial, sagittal, and coronal planes. IV contrast was not administered for this examination. A dose lowering technique was utilized adhering to the principles of ALARA. CT DOSE: 1159. mGy.cm FINDINGS: An endotracheal tube is noted on the braided band assembler tomogram. Skeletal structures: The skeletal structures are well mineralized. There is no evidence of fracture or subluxation involving the cervical spine. Vertebral body height and alignment are maintained. There is straightening of the cervical lordosis. Anterior osteophytes are seen throughout. The odontoid process and lateral masses are intact. The atlantoaxial articulation is preserved noting mild productive degenerative change. The spinous processes appear intact. There is mild multilevel facet arthropathy. Intervertebral discs: There is moderate disc space narrowing at C6-C7 and C7-T1. The remaining disc spaces appear maintained. Central canal: Posterior disc osteophyte complexes at C5-C6 and C6-C7 may contribute to acquired compromise of the central canal. Soft tissues: The prevertebral and paraspinous soft tissues are within normal limits. There is atherosclerotic calcification of the carotid bulbs. Roland secretions are noted throughout the pharynx. Calvarium: The visualized calvarium at the skull base appears intact. Brain parenchyma: Partially visualized brain parenchyma at the skull base is within normal limits. Sinuses and mastoids: The visualized paranasal sinuses are clear. The mastoid air cells are well pneumatized. Lung apices: Clear as visualized. IMPRESSION: There is no evidence of cervical spine fracture or subluxation. ACT 112: Negative or not required by law. Electronically signed by: Hernán Coker M.D. 04/22/2024 5:34 PM I & O Totals 24 Hours 04/22/24 04/23/24 04/24/24 06:59 06:59 06:59 Intake Total 4763.525 / 4763.525 174.083 / 174.083 Output Total 570 / 570 Balance 4193.525 / 4193.525 174.083 / 174.083 Cumulative 04/22/24 16:22 thru 04/23/24 07:44 Intake Total 4937.608 Output Total 570 Balance 4367.608 RT Ventilator Mngmt (Last Documented) Ventilator Ordered Settings Ventilator Support Mode Assist Control 04/23/24 07:05 Respiratory Rate 16 04/23/24 07:05 Ventilator Tidal Volume 450 04/23/24 07:05 Setting Minute Ventilation 7.2 04/23/24 07:05 Positive End Expiratory 5 04/23/24 07:05 Pressure Fraction of Inspired Oxygen 60 04/23/24 07:25 Machine Comment FiO3 increased to 60% Due to SpO2 04/23/24 07:25 86%. Ventilator - PT Measurements Respiratory Rate 16 Exhaled Tidal Volume 450 Minute Ventilation 7.2 Peak Inspiratory Airway 20 Pressure Plateau Pressure 15 Respiratory Cycle Inspiratory: 1:3.2 Expiratory Ratio Inspiratory Phase Time 0.9 End-Tidal CO2 38 Static Lung Compliance 45.00 Dynamic Lung Compliance 30.00 Normal Static Lung Compliance 47.00 Patient Measurements Comment FiO3 increased to 60% Due to SpO2 86%. Patient suctioned for a small amount of clear secretions . Patient also repositioned and elevated head. SpO2 increased to 91% Coding Level of Care Code 36377 SUB INP/OBS CARE 3/50MIN Diagnoses Alcoholic intoxication with complication F10.929 Complication of substance-induced condition: with unspecified complication Metabolic encephalopathy G93.41 Laceration of occipital scalp S01.01XA On mechanically assisted ventilation Z99.11 (1) Alcohol intoxication Complication of substance-induced condition: with unspecified complication Qualified Code(s): F10.929 - Alcohol use, unspecified with intoxication, unspecified
[2024-04-23] MEDS: POTASSIUM CHLORIDE CRTAB 20 MEQ TABCR PO STA (08:35)
[2024-04-23] MEDS: HEPARIN SOD 5,000 UNIT/0.5 ML VIAL SQ SCH (08:58)
[2024-04-23] MEDS: FOLIC ACID 1 MG in SYRINGE 9.8 ML IV SCH (08:59)
[2024-04-23] MEDS: DIPHTHERIA/TETANUS TOX ADSORB VACCINE (Td) 0.5 ML SYR/VIAL IM ONE (08:59)
--- NOTE | 2024-04-23 09:09 | Electrocardiogram Report ---
Test Reason : Blood Pressure : / mmHG Vent. Rate : 066 BPM Atrial Rate : 066 BPM P-R Int : 166 ms QRS Dur : 100 ms QT Int : 408 ms P-R-T Axes : 041 015 036 degrees QTc Int : 427 ms Normal sinus rhythm Diffuse Minor Nonspecific ST abnormality Abnormal ECG No previous ECGs available Confirmed by John Bolaños ([id number]) on 04/23/2024 9:08:50 AM Referred By: Rachna ARCHULETA Confirmed By:John Bolaños
[2024-04-23] MEDS: ACETAMINOPHEN 1,000 MG/100 ML VIAL IV STA (09:25)
[2024-04-23] MEDS: MEPERIDINE HCL 25 MG/ML CARP/VIAL IV STA (10:03)
--- NOTE | 2024-04-23 10:25 | XRay Report ---
SINGLE VIEW CHEST CLINICAL HISTORY: Respiratory failure. Extubation. FINDINGS: An AP, portable, upright chest radiograph is compared to study dated 04/22/2024. The endotra cheal tube has been removed. The heart is enlarged. Mild pulmonary vascular congestion persists. Scar ring/atelectasis is noted at the lung bases. No airspace consolidation or large pleural effusion is i dentified. No pneumothorax is seen. The bony thorax is grossly intact. Arthritic change is noted in t he shoulders. IMPRESSION: 1. The endotracheal tube has been removed. 2. Cardiomegaly with minimal pulmonary vascular congestion. 3. No airspace consolidation or large pleural effusion is identified. ACT 112: Negative or not required by law. Electronically signed by: Hernán Coker M.D. 04/23/2024 10:23 AM
[2024-04-23] MEDS: MEPERIDINE HCL 25 MG/ML CARP/VIAL IV ONE (13:00)
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
[2024-04-23] MEDS: ACETAMINOPHEN 500 MG TAB PO PRN (15:19)
[2024-04-23] MEDS: busPIRone 5 MG TAB PO SCH (20:55)
[2024-04-23] MEDS: IBUPROFEN 600 MG TAB PO SCH (20:55)
[2024-04-24 05:22] LABS: Basophils # (auto) 0.06 K/uL (0.00-0.20); Basophils % (auto) 0.5 %; Eosinophils % (auto) 1.5 %; Hematocrit (blood only) 32.7 % (42.0-52.0); Hemoglobin 11.5 g/dl (14.0-18.0); Immature Granulocytes # (auto) 0.05 K/uL (0.01-0.20); Immature Granulocytes % (auto) 0.4 %; Lymphocytes # (auto) 0.85 K/uL (1.20-3.40); Lymphocytes % (auto) 6.4 %; Mean Corpuscular Hemoglobin 30.2 pg (25.0-34.0); Mean Corpuscular Hgb Conc 35.2 g/dL (32.0-36.0); Mean Corpuscular Volume 85.8 fL (80.0-100.0); Mean Platelet Volume 9.6 fL (9.4-12.4); Monocytes # (auto) 0.79 K/uL (0.11-0.59); Neutrophils # (auto) 11.26 K/uL (1.40-6.50); Neutrophils % (auto) 85.2 %; Platelet Count 241 K/uL (130-400); RDW Coefficient of Variation 12.2 % (11.5-14.5); RDW Standard Deviation 38.1 fL (36.4-46.3); Red Blood Count 3.81 M/uL (4.70-6.10); White Blood Count 13.21 K/ul (4.8-10.8)
[2024-04-24 05:30] LABS: BUN Creatinine Ratio 12.7 (10-20); Calcium 7.9 mg/dl (8.6-10.3); Est GFR (African American) 111.5 ml/min; Est GFR (Non-African American) 96.2 ml/min; Magnesium 2.2 mg/dl (1.7-2.4); Potassium 3.1 mmol/L (3.5-5.1)
[2024-04-24] MEDS ORDERED: POTASSIUM PHOS 3 MMOL/1 ML INFUSION IV STA (05:35)
[2024-04-24] MEDS: POTASSIUM PHOSPHATE 9 MMOL in SODIUM CHLORIDE 0.9% 250 ML IV ONE (06:32)
[2024-04-24] MEDS ORDERED: COSYNTROPIN 250 MCG in SYRINGE 4 ML IV ONE (08:00)
[2024-04-24 08:57] LABS: Troponin I High Sensitivity 8.1 pg/ml (0-20)
[2024-04-24] MEDS ORDERED: FLUoxetine HCL 20 MG CAP PO SCH (09:00)
[2024-04-24] MEDS: POTASSIUM CHLORIDE / WTR 10 MEQ/100 ML PLCT IV SCH (09:14)
[2024-04-24] MEDS: lamoTRIgine 100 MG TAB PO SCH (09:15)
--- NOTE | 2024-04-24 09:17 | XRay Report ---
KUB CLINICAL HISTORY: Generalized abdominal pain. FINDINGS: 2 AP, portable, supine abdominal radiographs are correlated with abdominal CT dated 03/18/20. There is a nonobstructed abdominal bowel gas pattern. No evidence of intraperitoneal free air is seen on these supine images. There are no abnormal abdominal calcifications. Mesh material projects o juliet the groin bilaterally. The skeletal structures are osteopenic and appear intact. There is moderat e lumbosacral spondylosis. Cardiomegaly is noted in the lower chest. IMPRESSION: No acute abnormality is identified. Electronically signed by: Hernán Coker M.D. 04/24/2024 9:16 AM
--- NOTE | 2024-04-24 09:21 | XRay Report ---
XR chest 1V portable CLINICAL HISTORY: chest pain TECHNIQUE: Single frontal radiograph of the chest was obtained. Comparison: Comparison is made to chest radiograph 04/23/2024 FINDINGS: No lines and tubes are seen. Cardiomegaly is noted. The lungs are clear. No evidence of pleural effus ion or pneumothorax. IMPRESSION: No acute chest disease. Cardiomegaly is noted. ACT 112: Negative or not required by law. Electronically signed by: Rui Jc M.D. 04/24/2024 9:19 AM
--- NOTE | 2024-04-24 09:57 | Critical Care Progress Note ---
Date of Service April 24, 2024 Assessment & Plan (1) Alcohol intoxication: (2) Metabolic encephalopathy: (3) Laceration of occipital scalp: (4) On mechanically assisted ventilation: Plan Reason Critically Ill: 63 YOM admitted from half-way for agitated and combative behavior with suspicion of ingestion - intubated in the EMD, ETOH level >300 with AGAP 14. Neuro - Encephalopathy, Alcohol ingestion/intoxication, sedation for mechanical ventilation scalp laceration, MDD/Anxiety [facility] ICU: Negative. Encephalopathy resolved. Cardiac - HTN, HLD, CAD -Reinstitute home meds when extubated. Was complaining of some chest heaviness. EKG and troponin were negative. Will check echocardiogram. Has a history of early due to coronary artery disease in his family (brother in his 40s and father in his 40s). Respiratory -currently saturating well on room air. Chest x-ray with clearing of pulmonary congestion noted. GI - GERD - Continue PPI: Home med. Was complaining of abdominal pain. KUB negative. Lipase unremarkable. RENAL/LYTES - ETOH intoxication, Metabolic AGAP acidosis, lactic acidosis, -Replacing potassium with IV potassium chloride. Recheck BMP after potassium is replaced. - No acute needs -Discontinue Rush later today ENDO - No acute needs at this time - ICU hyper/hypoglycemic protocol HEME - No acute needs ID - No concern for infectious etiology at this time. Fevers resolved. Procalcitonin negative. LINES/IV ACCESS - PIV, DVT PROPHYLAXIS -heparin 5000 units twice daily. Skin: Scalp laceration repaired by emergency department: [place]. Appears clean dry and intact. DISPO: Downgrade to med telemetry. Doing well. Admission and Anticipated Discharge Date Admission Date: April 22, 2024 Subjective Patient seen and examined. Doing well. Complains of some mild gas pains in his abdomen. Denies any nausea or vomiting. Also notes some chest heaviness. EKG without any specific findings. Troponin negative. Review of Systems Review of Systems: All systems reviewed & are unremarkable except as noted in HPI & below Physical Exam Physical Exam: Constitutional: Patient appears to be of their stated age. Patient is in no apparent distress. Patient is well-developed. Eyes: Pupils are equal round and reactive to light. Conjunctivae are normal. Anicteric sclera. Ears nose, mouth and throat: Mallampati class 2. Normal posterior oropharynx. Uvula is midline. Neck: Trachea is midline. Visual inspection is normal. Respiratory: Clear to auscultation bilaterally. No use of accessory muscles. No significant clubbing noted. Cardiovascular: Regular rate and rhythm. No murmurs. No edema. Gastrointestinal: Normal bowel sounds, soft, nontender. No hepatosplenomegaly noted. Mildly distended abdomen. Musculoskeletal: No cyanosis. Patient is able to move all extremities. Strength is 5 out of 5 in the upper and lower extremities. Skin: No rashes, warm dry and intact. Neurologic: No obvious focal neurological deficits seen. Psychiatric: Alert and oriented x3 with a euthymic affect. Results & Data Results & Data Vital Signs (Past 12 Hours) Vital Signs Temp Pulse Pulse Resp BP BP Pulse Ox 04/24/24 08:04 67 20 116/80 93 04/24/24 07:00 37.4 C 52 L 15 128/67 96 04/24/24 06:00 37.4 C 54 L 14 109/60 95 04/24/24 05:00 37.3 C 54 L 20 94 04/24/24 04:00 37.3 C 51 L 19 109/60 96 04/24/24 03:15 37.2 C 51 L 19 95 04/24/24 03:00 109/60 04/24/24 02:30 37.3 C 47 L 18 95 04/24/24 02:09 37.4 C 48 L 12 95 04/24/24 01:27 37.5 C 49 L 14 95 04/24/24 01:00 109/53 L 04/24/24 00:42 37.6 C H 51 L 21 94 04/24/24 00:03 37.8 C H 53 L 17 115/58 L 95 04/24/24 00:00 51 L 04/23/24 23:03 38.1 C H 55 L 19 114/52 L 93 04/23/24 22:03 38.5 C H 61 16 94 O2 Del Method O2 Flow Rate 04/24/24 08:04 Room Air 04/24/24 07:00 Nasal Cannula 3 04/24/24 06:00 04/24/24 05:00 04/24/24 04:00 04/24/24 03:15 04/24/24 03:00 04/24/24 02:30 04/24/24 02:09 04/24/24 01:27 04/24/24 01:00 04/24/24 00:42 04/24/24 00:03 04/24/24 00:00 04/23/24 23:03 04/23/24 22:03 Coding Level of Care Code 00026 SUB INP/OBS CARE 2/35MIN Diagnoses Alcoholic intoxication with complication F10.929 Complication of substance-induced condition: with unspecified complication Metabolic encephalopathy G93.41 Laceration of occipital scalp S01.01XA On mechanically assisted ventilation Z99.11 (1) Alcohol intoxication Complication of substance-induced condition: with unspecified complication Qualified Code(s): F10.929 - Alcohol use, unspecified with intoxication, unspecified
[2024-04-24] MEDS: MAGNESIUM HYDROXIDE SUSP 30 ML UDC PO ONE (10:28)
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
--- NOTE | 2024-04-24 11:44 | Electrocardiogram Report ---
Test Reason : Blood Pressure : / mmHG Vent. Rate : 063 BPM Atrial Rate : 063 BPM P-R Int : 166 ms QRS Dur : 098 ms QT Int : 416 ms P-R-T Axes : 048 017 000 degrees QTc Int : 425 ms Normal sinus rhythm Diffuse Minor Nonspecific T wave abnormality Abnormal ECG When compared with ECG of 22-APR-2024 17:56, No significant change was found Confirmed by John Bolaños ([id number]) on 04/24/2024 11:44:09 AM Referred By: Rachna ARCHULETA Confirmed By:John Bolaños
[2024-04-24] MEDS: PANTOprazole 40 MG TAB PO SCH (12:25)
[2024-04-24] MEDS: EZETIMIBE 10 MG TAB PO SCH (12:25)
[2024-04-24] MEDS: ASPIRIN 81 MG ECTAB PO SCH (12:25)
[2024-04-24] MEDS: TAMSULOSIN HCL 0.4 MG CAP PO SCH (12:25)
[2024-04-24] MEDS: FLUoxetine HCL 20 MG CAP PO SCH (12:40)
[2024-04-24] MEDS: ACETAMINOPHEN 325 MG TAB PO PRN (13:18)
[2024-04-24] MEDS: POLYETHYLENE (MIRALAX) 17 GM PACK PO PRN (21:46)
[2024-04-24] MEDS: DOCUSATE SODIUM/SENNA 50/8.6MG TAB PO SCH (21:46)
[2024-04-25 07:35] LABS: Basophils # (auto) 0.03 K/uL (0.00-0.20); Basophils % (auto) 0.3 %; Eosinophils # (auto) 0.12 K/uL (0.00-0.50); Eosinophils % (auto) 1.2 %; Hematocrit (blood only) 33.5 % (42.0-52.0); Hemoglobin 11.7 g/dl (14.0-18.0); Immature Granulocytes # (auto) 0.04 K/uL (0.01-0.20); Immature Granulocytes % (auto) 0.4 %; Lymphocytes # (auto) 0.62 K/uL (1.20-3.40); Mean Corpuscular Hemoglobin 30.2 pg (25.0-34.0); Mean Corpuscular Hgb Conc 34.9 g/dL (32.0-36.0); Mean Corpuscular Volume 86.6 fL (80.0-100.0); Mean Platelet Volume 9.7 fL (9.4-12.4); Monocytes # (auto) 0.65 K/uL (0.11-0.59); Monocytes % (auto) 6.2 %; Neutrophils # (auto) 8.95 K/uL (1.40-6.50); Neutrophils % (auto) 85.9 %; Platelet Count 239 K/uL (130-400); RDW Coefficient of Variation 12.2 % (11.5-14.5); RDW Standard Deviation 38.4 fL (36.4-46.3); Red Blood Count 3.87 M/uL (4.70-6.10); White Blood Count 10.41 K/ul (4.8-10.8)
[2024-04-25 07:51] LABS: Calcium 8.3 mg/dl (8.6-10.3); Creatinine Clr Calc Pharmacy 114.1 ml/min; Est GFR (African American) 113.9 ml/min; Est GFR (Non-African American) 98.3 ml/min; Potassium 2.9 mmol/L (3.5-5.1)
[2024-04-25 07:56] LABS: Magnesium 2.1 mg/dl (1.7-2.4); Phosphorus 1.3 mg/dl (2.5-4.9)
[2024-04-25] MEDS: SODIUM CHLOR 7% 4 ML NEB NEB SCH (08:12)
[2024-04-25] MEDS: ALBUT/IPRATROP 3MG/0.5MG NEB 3 ML VIAL NEB SCH (08:12)
[2024-04-25] MEDS ORDERED: POTASSIUM PHOS 3 MMOL/1 ML INFUSION IV STA (08:18)
[2024-04-25] MEDS: THIAMINE HCL 100 MG TAB PO SCH (09:07)
[2024-04-25] MEDS: FOLIC ACID 1 MG TAB PO SCH (09:08)
[2024-04-25] MEDS: POTASSIUM PHOSPHATE 30 MMOL in SODIUM CHLORIDE 0.9% 500 ML IV ONE (09:12)
[2024-04-25] MEDS: AMOXICILLIN/CLAVULANATE 875 MG TAB PO SCH (10:57)
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
[2024-04-25 23:47] LABS: 7-Aminoclonaz, Confirm NEGATIVE ng/mL (<25); Hydro-Alp Ur, GC/MS NEGATIVE ng/mL (<25); Hydroxyethylflurazepam, Conf NEGATIVE ng/mL (<50); Hydroxymidazolam Ur, GC/MS 1480 ng/mL (<50); Hydroxytriazolam NEGATIVE ng/mL (<50); Lorazepam, Ur GC/MS NEGATIVE ng/mL (<50); Nordiazepam, Confirm NEGATIVE ng/mL (<50); Oxazepam Ur, GC/MS NEGATIVE ng/mL (<50); Temazepam, Confirm NEGATIVE ng/mL (<50)
[2024-04-27 16:17] LABS: Angiotensin Converting Enzyme 49 U/L (9-67)
== END 2024-04-25 17:20 | DRG 896 ==
LOC: ED 16:44 → 1E 18:33 → 2W 04-24 13:00